=== PATIENT | female | born 1985 | race Caucasian/White ===

== ENCOUNTER 2023-09-29 20:58 | Emergency (ER) | payer MEDICARE, MEDICAID, SELFPAY ==
[2023-09-29 21:06] VITALS: BP 141/96; PULSE 100; RESP 16; TEMP 36.6; O2SAT 97; BMI 45.2
--- NOTE | 2023-09-29 21:31 | ED_ITS ---
HPI - General Adult General Chief complaint: Psychiatric Problem/Disorder Stated complaint: Suicidal ideation Time Seen by Provider: 09/29/23 21:27 History of Present Illness HPI narrative: pt feels like she wants to take all her pills. pt did not take any pills, instead called her friend. Friend brought her to the ER. Pt reports was going to take every pill she had. Pt reports 5 months ago, reason for taking all her pills is more than depression . Pt also reports increased PTSD at night time. These feelings started 2 weeks ago 38-year-old woman presenting to the emergency department. She has over the last couple of weeks been feeling increasing like she wants to take all her pills. She does believe that she and the world would be better off if she were . She cannot guarantee her safety it appears on return home at this time. She is accompanied here by her friend. Apparently told her boyfriend about her intent. She has done this before believe in 2018 and 2020 with intent to take pills ultimately admitted it to someone and was hospitalized. Last hospitalization was at [facility] with suicidal intention. Stressors recently include the of her about 5 months ago from rapidly progressive liver cancer. She has since his been relieving events that happened to her as a child she says; experiencing flares of her PTSD. References a few times however mother taught her to cut her wrist properly demonstrating to an old wound on her right wrist. She is getting out somewhat with attempts at walking her dog. Apparently has picture of her dog on her teacher at this time. Psychiatric care provider apparently increased 1 of her psychiatric meds from 4 mg to 5 mg daily. This might have been levo cetirizine. She denies any substances however about 2 weeks ago she did say she wanted to cut lose or ?let loose? little and had what sounds like more alcohol than she normally would. Related Data Home Medications Medication Instructions Recorded Confirmed bupropion HCl 300 mg 24 hr tablet, tab PO 02/24/22 02/24/22 extended release buspirone 15 mg tablet 15 mg PO BID 02/24/22 02/24/22 fluoxetine 60 mg tablet 60 mg PO BID 02/24/22 02/24/22 levocetirizine 5 mg tablet 5 mg PO QDAY 02/24/22 02/24/22 norethindrone acetate 5 mg tablet 5 mg PO QDAY 02/24/22 02/24/22 omeprazole 20 mg capsule,delayed 20 mg PO BID 02/24/22 02/24/22 release prazosin 2 mg capsule 2 mg PO QDAY 02/24/22 02/24/22 prazosin 5 mg capsule 5 mg PO BID 02/24/22 02/24/22 Allergies Allergy/AdvReac Type Severity Reaction Status Date / Time No Known Drug Allergies Allergy Verified 02/24/22 12:37 Review of Systems Status of ROS: Reports: 6 or more systems reviewed and unremarkable except as noted in History and below Exam Narrative: Exam Narrative: Accompanied by a woman friend. Appears near tears at 1 point. Is dressed in bed clothes with Madhu Potter pj bottoms and Tshirt with her dogs paw prints printed on it. She is wearing glasses. Appropriately groomed. Looks to be taking care of herself. Speech isn't pressured or slurred. She is breathing easily. Heart in elevated rate but regular rhythm. Skin is warm and dry. No evidence of new self-harm on her person. Cranial nerves 2-12 intact. No nystagmus. Const: Vital Signs, click to edit/add: Vital Signs - 24 hr 09/29/23 21:06 Temperature 97.8 F Pulse Rate [Left P ulse Oximeter] 100 Respiratory Rate 16 Blood Pressure [Ri ght Upper Arm] 141/96 H Pulse Oximetry 97 Oxygen Delivery Me thod Room Air Documenting provider has reviewed patient's vital signs: yes Course Vital Signs Vital signs: Initial Vital Signs Temperature 97.8 F 09/29/23 21:06 Temperature Source Temporal Artery Scan 09/29/23 21:06 Pulse Rate 100 09/29/23 21:06 Pulse Rhythm Regular 09/29/23 21:06 Respiratory Rate 16 09/29/23 21:06 Blood Pressure 141/96 H 09/29/23 21:06 Blood Pressure Mean 111 H 09/29/23 21:06 Blood Pressure Position Sitting 09/29/23 21:06 Pulse Oximetry 97 09/29/23 21:06 Oxygen Delivery Method Room Air 09/29/23 21:06 Vital Signs Temperature 97.8 F 09/29/23 21:06 Pulse Rate 100 09/29/23 21:06 Respiratory Rate 16 09/29/23 21:06 Blood Pressure 141/96 H 09/29/23 21:06 Pulse Oximetry 97 09/29/23 21:06 Oxygen Delivery Method Room Air 09/29/23 21:06 Temperature 97.8 F 09/29/23 21:06 Pulse Rate 100 09/29/23 21:06 Respiratory Rate 16 09/29/23 21:06 Blood Pressure 141/96 H 09/29/23 21:06 Pulse Oximetry 97 09/29/23 21:06 Oxygen Delivery Method Room Air 09/29/23 21:06 Medications Administered Medications: Discontinued Medications Generic Name Dose Route Start Last Admin Trade Name Myah PRN Reason Stop Dose Admin Olanzapine 5 mg 09/29/23 23:16 09/29/23 23:34 Olanzapine 5 Mg Tab.Rapdis PO 09/29/23 23:17 5 mg ONCE ONE Administration Medical Decision Making MDM Narrative Medical decision making narrative: This is not the 1st time that has contemplated suicide by pills. She has had other thoughts but returns to pill ingestion. Medication list is reviewed. She says that has contemplated this before but ultimately told somebody about it. Has had escalating thoughts of suicide over the last 2 weeks. Is asking for help. Does feel that she needs to be hospitalized. She has been admitted to the [facility] before. We requested to speak with psychiatric care provider there as she is requesting hospitalization. They are insisting on DEC assessment. So we will ask for DEC assessment. She is clearly stating suicidal intent though I think there are some axis 2 behaviors here. DEC provider video conferenced in surprisingly quickly insisted on speaking with patient prior to speaking with me to gather information about this case. Recommendation by DEC freight separator is observation/step-down unit with reassessment in the morning. Erica reported though to insistent on inpatient placement. Will therefore begin looking but likely have to remain here in the emergency department. I anticipate reassessment in the morning. Erica would like something to help with sleep. Is ordered for 5 mg of olanzapine. Will be handing off at change of shift Lab Data Lab results reviewed: Yes I reviewed the patient's lab results Labs: Lab Results 09/29/23 09/29/23 09/29/23 Range/Units 21:35 21:44 22:01 WBC 8.79 (4.50-11.00) K/uL RBC 5.01 (4.00-5.20) m/uL Hgb 13.5 (12.0-16.0) gm/dL Hct 40.9 (33.0-51.0) % MCV 82 (80-100) fL MCH 27 (26-34) pg MCHC 33 (32-36) gm/dL RDW Coeff of Aidan 14.1 (11.5-15.5) % Plt Count 299 (140-440) K/uL Neut % (Auto) 64.2 (42.0-72.0) % Lymph % (Auto) 28.9 (20-44) % [place] % (Auto) 4.4 (0.0-11.0) % Eos % (Auto) 1.7 (0.0-7.0) % Baso % (Auto) 0.7 (0.0-3.0) % Neut # (Auto) 5.64 (1.7-7.0) K/uL Lymph # (Auto) 2.54 (0.90-2.90) K/uL [place] # (Auto) 0.40 (0.00-0.90) K/UL Eos # (Auto) 0.15 (0.00-0.50) K/uL Baso # (Auto) 0.06 (0.00-0.30) K/uL Abs Immat Gran (auto) 0.01 (0.00-0.30) K/uL Imm/Tot Granulo (auto) 0.1 % Sodium 140 (135-149) mmol/L Potassium 3.4 L (3.6-5.1) mmol/L Chloride 107 (96-114) mmol/L Carbon Dioxide 24 (20-32) mmol/L Anion Gap 9 (7-15) mEq/L BUN 10 (5-24) mg/dL Creatinine 0.6 (0.5-1.5) mg/dL Estimated Creat Clear 117.85 Estimated GFR 117 ml/min Glucose 113 (60-115) mg/dL Calcium 9.4 (8.4-10.6) mg/dL TSH 1.500 (0.270-4.20) uIU/mL Urine Color Yellow (Yellow) Urine Appearance Slightly Cloudy A (Clear) Urine pH 7.0 (5.0-8.5) Ur Specific Ramsey 1.025 (1.000-1.030) Urine Protein Negative (Negative) Urine Glucose (UA) Negative (Negative) Urine Ketones Negative (Negative) Urine Blood Negative (Negative) Urine Nitrite Negative (Negative) Urine Bilirubin Negative (Negative) Urine Urobilinogen 1.0 (0.2-1.0) Ur Leukocyte Esterase Negative (Negative) Urine RBC 0-2 (0-2) Urine WBC 2-5 (0-5) Ur Squamous Epith Cells Moderate A (None-Few) Urine HCG, Qual Negative (Negative) Salicylates < 1.0 L (1.0-10) mg/dL Urine Opiates Screen Negative (Negative) Ur Oxycodone Screen Negative (Negative) Urine Methadone Screen Negative (Negative) Acetaminophen < 10.0 L (10.0-30.0) ug/mL Ur Barbiturates Screen Negative (Negative) U Tricyclic Antidepress Negative (Negative) Ur Phencyclidine Scrn Negative (Negative) Ur Amphetamines Screen Negative (Negative) U Methamphetamines Scrn Negative (Negative) U Benzodiazepines Scrn POSITIVE A (Negative) Urine Cocaine Screen Negative (Negative) U Marijuana (THC) Screen Negative (Negative) Ur Drug Screen Comment See Note Ethyl Alcohol < 0.01 L (0.01-0.03) % SARS-CoV-2 (PCR) (Negative) 09/29/23 Range/Units 22:10 WBC (4.50-11.00) K/uL RBC (4.00-5.20) m/uL Hgb (12.0-16.0) gm/dL Hct (33.0-51.0) % MCV (80-100) fL MCH (26-34) pg MCHC (32-36) gm/dL RDW Coeff of Aidan (11.5-15.5) % Plt Count (140-440) K/uL Neut % (Auto) (42.0-72.0) % Lymph % (Auto) (20-44) % [place] % (Auto) (0.0-11.0) % Eos % (Auto) (0.0-7.0) % Baso % (Auto) (0.0-3.0) % Neut # (Auto) (1.7-7.0) K/uL Lymph # (Auto) (0.90-2.90) K/uL [place] # (Auto) (0.00-0.90) K/UL Eos # (Auto) (0.00-0.50) K/uL Baso # (Auto) (0.00-0.30) K/uL Abs Immat Gran (auto) (0.00-0.30) K/uL Imm/Tot Granulo (auto) % Sodium (135-149) mmol/L Potassium (3.6-5.1) mmol/L Chloride (96-114) mmol/L Carbon Dioxide (20-32) mmol/L Anion Gap (7-15) mEq/L BUN (5-24) mg/dL Creatinine (0.5-1.5) mg/dL Estimated Creat Clear Estimated GFR ml/min Glucose (60-115) mg/dL Calcium (8.4-10.6) mg/dL TSH (0.270-4.20) uIU/mL Urine Color (Yellow) Urine Appearance (Clear) Urine pH (5.0-8.5) Ur Specific Ramsey (1.000-1.030) Urine Protein (Negative) Urine Glucose (UA) (Negative) Urine Ketones (Negative) Urine Blood (Negative) Urine Nitrite (Negative) Urine Bilirubin (Negative) Urine Urobilinogen (0.2-1.0) Ur Leukocyte Esterase (Negative) Urine RBC (0-2) Urine WBC (0-5) Ur Squamous Epith Cells (None-Few) Urine HCG, Qual (Negative) Salicylates (1.0-10) mg/dL Urine Opiates Screen (Negative) Ur Oxycodone Screen (Negative) Urine Methadone Screen (Negative) Acetaminophen (10.0-30.0) ug/mL Ur Barbiturates Screen (Negative) U Tricyclic Antidepress (Negative) Ur Phencyclidine Scrn (Negative) Ur Amphetamines Screen (Negative) U Methamphetamines Scrn (Negative) U Benzodiazepines Scrn (Negative) Urine Cocaine Screen (Negative) U Marijuana (THC) Screen (Negative) Ur Drug Screen Comment Ethyl Alcohol (0.01-0.03) % SARS-CoV-2 (PCR) Negative SARS-CoV-2 (Negative) Discharge Plan Discharge Clinical Impression: [place] II diagnosis deferred, Suicidal ideation Prescriptions: No Action prazosin 2 mg capsule 2 mg PO QDAY bupropion HCl 300 mg tablet extended release 24 hr PO omeprazole 20 mg capsule,delayed release(DR/EC) 20 mg PO BID norethindrone acetate 5 mg tablet 5 mg PO QDAY fluoxetine 60 mg tablet 60 mg PO BID levocetirizine 5 mg tablet 5 mg PO QDAY buspirone 15 mg tablet 15 mg PO BID prazosin 5 mg capsule 5 mg PO BID Follow Up/Referrals: Kati Smallwood MD [Primary Care Provider] -
[2023-09-29 21:45] LABS: Appearance Urine Slightly Cloudy (Clear); Bilirubin Urine Negative (Negative); Blood Urine Negative (Negative); Color Urine Yellow (Yellow); Glucose Urine Negative (Negative); Ketones Urine Negative (Negative); Leukocyte Esterase Urine Negative (Negative); Nitrite Urine Negative (Negative); Protein Urine Negative (Negative); Specific Gravity Urine 1.025 (1.000-1.030)
[2023-09-29 22:03] LABS: RBC Urine 0-2 (0-2); Squamous Epithelial Cell Urine Moderate (None-Few)
[2023-09-29 22:04] LABS: Amphetamine Screen Urine Negative (Negative); Barbiturate Screen Urine Negative (Negative); Benzodiazepines Screen Urine POSITIVE (Negative); Cannabinoid Screen Urine Negative (Negative); Cocaine Screen Urine Negative (Negative); Methadone Screen Urine Negative (Negative); Methamphetamines Screen Urine Negative (Negative); Opiate Screen Urine Negative (Negative); Oxycodone Screen Urine Negative (Negative); Phencyclidine Screen Urine Negative (Negative); Tricyclic Antidepressant Urine Negative (Negative); Ur HCG Qualitative* Negative (Negative)
[2023-09-29 22:18] LABS: Basophils Absolute Auto 0.06 K/uL (0.00-0.30); Basophils Percent Auto 0.7 % (0.0-3.0); Eosinophils Absolute Auto 0.15 K/uL (0.00-0.50); Eosinophils Percent Auto 1.7 % (0.0-7.0); Hematocrit 40.9 % (33.0-51.0); Hemoglobin* 13.5 gm/dL (12.0-16.0); Immature Granulocytes Abs Auto 0.01 K/uL (0.00-0.30); Immature Granulocytes Pct Auto 0.1 %; Lymphocytes Absolute Auto 2.54 K/uL (0.90-2.90); Lymphocytes Percent Auto 28.9 % (20-44); Mean Corpuscular HGB Conc 33 gm/dL (32-36); Mean Corpuscular Hemoglobin 27 pg (26-34); Mean Corpuscular Volume 82 fL (80-100); Monocytes Percent Auto 4.4 % (0.0-11.0); Neutrophils Absolute Auto 5.64 K/uL (1.7-7.0); Neutrophils Percent Auto 64.2 % (42.0-72.0); Platelet Count* 299 K/uL (140-440); RDW Coefficient of Variation % 14.1 % (11.5-15.5); Red Blood Count 5.01 m/uL (4.00-5.20); White Blood Count* 8.79 K/uL (4.50-11.00)
[2023-09-29 22:23] LABS: Slide Review Reflex No
[2023-09-29 22:31] LABS: Chloride* 107 mmol/L (96-114); Potassium* 3.4 mmol/L (3.6-5.1); Sodium* 140 mmol/L (135-149)
[2023-09-29 22:34] LABS: Anion Gap 9 mEq/L (7-15); Blood Urea Nitrogen* 10 mg/dL (5-24); Calcium* 9.4 mg/dL (8.4-10.6); Carbon Dioxide* 24 mmol/L (20-32); Creatinine* 0.6 mg/dL (0.5-1.5); Est. Creatinine Clearance* 117.85; Estimated Glomerular Filt Rate 117 ml/min; Glucose* 113 mg/dL (60-115)
[2023-09-29 22:37] LABS: Acetaminophen* < 10.0 ug/mL (10.0-30.0); Ethanol* < 0.01 % (0.01-0.03); Salicylate* < 1.0 mg/dL (1.0-10)
[2023-09-29 22:55] LABS: SARS PCR* Negative SARS-CoV-2 (Negative)
--- NOTE | 2023-09-29 23:00 | ED.NURSE ---
DEC completed. Pt changed from room 7 to room 2 not that room 2 is available. Pt is cooperative.
[2023-09-29] MEDS: OLANZapine 5 MG TAB.RAPDIS PO (23:34)
--- NOTE | 2023-09-29 23:34 | ED.NURSE ---
Pt given apple juice and apple sauce per request.
--- NOTE | 2023-09-30 02:26 | ED.NURSE ---
[facility] accepted pt. RN to RN report given. RN at [facility]. Number [phone]. Dispatch also called.
[2023-09-30 02:30] VITALS: BP 137/86; PULSE 79; RESP 16; O2SAT 96
--- NOTE | 2023-09-30 02:41 | ED.NURSE ---
EMS arrived. Report given to EMS. [facility] called and gave ETA of EMS.
== END 2023-09-30 02:49 | disposition short-term general hospital (02) ==
LOC: ED 21:52
PROVIDERS: Emergency Provider Family Medicine; PCP Family Medicine
DX: R45.851 Suicidal ideations (principal)
CPT/HCPCS: 36415; 80048; 80143; 80179; 80306; 81001; 81025; 82077; 84443; 85025; 87635; 99283; 99284; A9270

== ENCOUNTER 2023-09-30 02:32 | Outpatient (CLI) | payer MEDICARE, MEDICAID, SELFPAY | END 2023-09-30 02:33 | disposition home or self-care (01) | LOC: AMB 10-01 12:41 | PROVIDERS: PCP Family Medicine; Visit Provider Family Medicine | DX: R45.851 Suicidal ideations (principal) | CPT/HCPCS: A0425; A0428 ==

== ENCOUNTER 2024-09-04 04:37 | Emergency (ER) | payer MEDICARE, SELFPAY ==
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
[2024-09-04 04:42] VITALS: BP 137/88; PULSE 95; RESP 18; TEMP 36.9; O2SAT 99; BMI 46.8
--- NOTE | 2024-09-04 05:20 | ED_ITS ---
HPI - General Adult General Chief complaint: Rib Pain Stated complaint: Pain below R ribs, short of breath Time Seen by Provider: 09/04/24 05:20 History of Present Illness HPI narrative: CC: Right Rib Pain pt. with right rib pain since yesterday morning. denies n/v, fevers, cough. 39-year-old woman presenting to the emergency department with concern of right lower chest or upper abdominal pain that started yesterday. No fever. No rash. No cough or cold symptoms. In no trauma. No noted unusual leg pain or swelling. [id number] treatments including ibuprofen acetaminophen have not been helpful. Pain is reported is definitely pleuritic. No particular stomach indigestion but does take omeprazole. There was a question of constipation and so was supplemented with some bowel aid but she says that has actually been quite regular as of late prior to that. Here with service dog Related Data Home Medications ?Medication ?Instructions ?Recorded ?Confirmed bupropion HCl 300 mg 24 hr tablet, 300 mg PO DAILY 02/24/22 09/04/24 extended release buspirone 15 mg tablet 15 mg PO BID 02/24/22 09/04/24 fluoxetine 60 mg tablet 60 mg PO BID 02/24/22 09/04/24 levocetirizine 5 mg tablet 5 mg PO QDAY 02/24/22 09/04/24 omeprazole 20 mg capsule,delayed 20 mg PO BID 02/24/22 09/04/24 release prazosin 2 mg capsule 2 mg PO QDAY 02/24/22 09/04/24 Previous Rx's ?Medication ?Instructions ?Recorded hydrocodone 5 mg-acetaminophen 325 1 - 2 tab PO Q4-6H PRN pain #12 09/04/24 mg tablet tabs ibuprofen 600 mg tablet 600 mg PO Q8H PRN #30 tabs 09/04/24 Allergies Allergy/AdvReac Type Severity Reaction Status Date / Time No Known Drug Allergies Allergy Verified 09/04/24 04:44 Review of Systems Status of ROS: Reports: 6 or more systems reviewed and unremarkable except as noted in History and below [facility] Social History Smoking Status: Never smoker Second hand tobacco smoke exposure: No How often do you have a drink containing alcohol: never AUDIT-C Alcohol total score: 0 Non-prescribed substance use: denies use Exam Narrative: Exam Narrative: Lying in exam chair. Appears uncomfortable. Splinting a little bit her breathing. Lungs appear to be clear. Heart in elevated rate and regular rhythm. Abdomen is soft. Obese. Very sensitive with severe pain demonstrated to even light touch in the right upper abdomen and along the ribs. Less so to the harder palpation of the ribs themselves in this area. No pain to palpation of the back but starts to get sore in the right ribs of the flanks. Skin is warm and dry without rash. Extremities without notable edema. She is well- perfused. Const: Vital Signs, click to edit/add: Vital Signs - 24 hr 09/04/24 04:42 09/04/24 05:36 09/04/24 06:41 Temperature 98.5 F 98.5 F Pulse Rate [Right Pulse Oximeter] 95 Respiratory Rate 18 Blood Pressure [Ri ght Upper Arm] 137/88 Pulse Oximetry 99 99 Oxygen Delivery Me thod Room Air 09/04/24 06:43 Temperature 98.5 F Pulse Rate [Right Pulse Oximeter] 85 Respiratory Rate 18 Blood Pressure [Ri ght Upper Arm] 129/79 Pulse Oximetry 99 Oxygen Delivery Me thod Room Air Documenting provider has reviewed patient's vital signs: yes Course Vital Signs Vital signs: Initial Vital Signs Temperature 98.5 F 09/04/24 04:42 Temperature Source Temporal Artery Scan 09/04/24 04:42 Pulse Rate 95 09/04/24 04:42 Respiratory Rate 18 09/04/24 04:42 Blood Pressure 137/88 09/04/24 04:42 Blood Pressure Mean 104 09/04/24 04:42 Blood Pressure Position Sitting 09/04/24 04:42 Pulse Oximetry 99 09/04/24 04:42 Oxygen Delivery Method Room Air 09/04/24 04:42 Vital Signs Temperature 98.5 F 09/04/24 04:42 Pulse Rate 95 09/04/24 04:42 Respiratory Rate 18 09/04/24 04:42 Blood Pressure 137/88 09/04/24 04:42 Pulse Oximetry 99 09/04/24 04:42 Oxygen Delivery Method Room Air 09/04/24 04:42 Temperature 98.5 F 09/04/24 06:43 Pulse Rate 88 09/04/24 08:35 Respiratory Rate 20 09/04/24 08:35 Blood Pressure 146/93 H 09/04/24 08:35 Pulse Oximetry 96 09/04/24 08:35 Oxygen Delivery Method Room Air 09/04/24 08:35 Medications Administered Medications: Discontinued Medications Generic Name Dose Route Start Last Admin Trade Name Myah PRN Reason Stop Dose Admin Sodium Chloride 500 mls @ 1,000 mls/hr 09/04/24 05:25 09/04/24 06:01 0.9 % Sodium Chloride 500 Ml IV 09/04/24 05:54 Infused .Q30M ONE Infusion Sodium Chloride 500 mls @ 1,000 mls/hr 09/04/24 06:48 09/04/24 07:35 0.9 % Sodium Chloride 500 Ml IV 09/04/24 07:17 Infused .Q30M ONE Infusion Ketorolac Tromethamine 30 mg 09/04/24 05:25 09/04/24 05:31 Ketorolac 30 Mg/Ml Inj IVP 09/04/24 05:26 30 mg ONCE ONE Administration Lidocaine 1 patch 09/04/24 06:38 09/04/24 06:48 Lidocaine 5% Patch TRANSDERMA 09/04/24 06:39 1 patch ONCE ONE Administration Protocol Morphine Sulfate 4 mg 09/04/24 05:25 09/04/24 05:30 Morphine 4 Mg/Ml Inj IVP 09/04/24 05:26 4 mg ONCE ONE Administration Medical Decision Making MDM Narrative Medical decision making narrative: She does still have her gallbladder. May be having cholecystitis sustained. Could be chest wall/costochondritic pain. Doubtful urinary tract infection or ureteral stone/colic. Could be rib to injury. Evolving shingles? Low-lying pneumonia or pulmonary embolus? I do not think this is radicular back pain. Possible occult fracture I suppose. Will need to collect some labs to direct imaging if necessary. She would appreciate some pain relief. Ordered initially for morphine and ketorolac. Labs are wholly unremarkable. I understand that pain is not improved at all. Ago to reassess. Is still quite tender to light touch and specially palpation of the low right side rib margin even little more laterally. Also tender in the right upper quadrant but not I think like the ribs on re exam. Is uncomfortable and concerned. Demonstrating degree of pleuritic pain is now experiencing. Will do CTA chest to make sure not missing anything there. Doubt pulmonary embolus. I think this is costochondritis/rib tip injury. As expected imaging is unremarkable. 3 mm nodule is noted. No high risk history per subsequent discussion. INDICATION: Severe atraumatic pleuritic right anterior lower chest pain, rib edge ? COMPARISON: None. TECHNIQUE: CT angiogram chest with contrast, pulmonary embolism protocol. Multiplanar axial, coronal, and sagittal reformats are included. MIP images to improve detection of pulmonary emboli are included. Intravenous contrast: 95 mL Isovue 370. FINDINGS: PE: Well-timed contrast bolus. No pulmonary emboli. Normal caliber main pulmonary artery. Normal sized right heart chambers. No reflux of contrast below the diaphragm. Airway: Normal tracheobronchial tree. Lungs: Expiratory appearance of the lungs. There is a 3 millimeter pulmonary nodule in the subpleural left lower lobe on series 4, image 103. calcified granuloma in the right lower lobe. No consolidations. Normal appearance of the pulmonary interstitium. Pleura: No pleural effusion. No pneumothorax. Lymph nodes: No thoracic adenopathy. Mediastinum: No pneumomediastinum. Small residual thymus is within normal limits. Heart and great vessels: No pericardial effusion. Normal cardiac chamber size. Scattered atherosclerotic plaques. No aortic aneurysm. Chest wall: Normal. No masses. Upper abdomen: Normal. Bones: No fractures. No focal bone lesions. IMPRESSION: 1. No pulmonary embolism. 2. Expiratory appearance of the lungs. 3. There is a single 3 millimeter pulmonary nodule. Per the Fleischner society criteria, follow-up is only recommended for patients that have a high risk of primary pulmonary malignancy, with a follow-up chest CT in 1 year. Otherwise, no specific follow-up is recommended. Vitals stable. Pain persists but otherwise well in the emergency department. Discussed outpatient management of pain. See patient discharge plan for further discussion If this lidocaine patch seems to be helpful, can purchase more [id number]. Consider placing ice packs a couple of times daily over the next few days. Would recommend taking 600 mg of ibuprofen 3 times daily or alternatively 375 mg naproxen 2 times daily over the next 5-7 days. You might want to take this scheduled medication with a little food. Can combine either of these with up to 1000 mg of acetaminophen per dose. Also prescribing some [place] as discussed. This is an opiate. Remember that each tablet of [place] contains 325 mg of acetaminophen. Be seen for increasing and persistent shortness of breath, uncontrolled pain, associated fever. Medical Records Medical records reviewed: Yes I reviewed the patient's medical records Lab Data Lab results reviewed: Yes I reviewed the patient's lab results Labs: Lab Results 09/04/24 09/04/24 09/04/24 Range/Units 05:25 05:35 06:18 WBC 8.74 (4.50-11.00) K/uL RBC 5.08 (4.00-5.20) m/uL Hgb 13.5 (12.0-16.0) gm/dL Hct 42.0 (33.0-51.0) % MCV 83 (80-100) fL MCH 27 (26-34) pg MCHC 32 (32-36) gm/dL RDW Coeff of [place] 14.0 (11.5-15.5) % Plt Count 290 (140-440) K/uL Neut % (Auto) 63.1 (42.0-72.0) % Lymph % (Auto) 29.6 (20-44) % [place] % (Auto) 5.0 (0.0-11.0) % Eos % (Auto) 1.5 (0.0-7.0) % Baso % (Auto) 0.7 (0.0-3.0) % Neut # (Auto) 5.51 (1.7-7.0) K/uL Lymph # (Auto) 2.59 (0.90-2.90) K/uL [place] # (Auto) 0.40 (0.00-0.90) K/UL Eos # (Auto) 0.13 (0.00-0.50) K/uL Baso # (Auto) 0.06 (0.00-0.30) K/uL Abs Immat Gran (auto) 0.01 (0.00-0.30) K/uL Imm/Tot Granulo (auto) 0.1 % D-Dimer Quant (PE/DVT) 0.37 (0.00-0.50) ug/ml Sodium 140 (135-149) mmol/L Potassium 4.3 (3.6-5.1) mmol/L Chloride 105 (96-114) mmol/L Carbon Dioxide 25 (20-32) mmol/L Anion Gap 10 (7-15) mEq/L BUN 14 (5-24) mg/dL Creatinine 0.6 (0.5-1.5) mg/dL Estimated Creat Clear 116.68 Estimated GFR 116 ml/min Glucose 120 H (60-115) mg/dL Calcium 9.3 (8.4-10.6) mg/dL Total Bilirubin 0.5 (0.1-1.5) mg/dL Direct Bilirubin 0.4 (0.0-0.5) mg/dL AST 31 (12-35) U/L ALT 31 (4-35) U/L Alkaline Phosphatase 51 (40-150) U/L C-Reactive Protein 1.1 H (0.5-1.0) mg/dL Total Protein 7.6 (6.0-8.3) g/dL Albumin 4.2 (3.3-5.0) g/dL Lipase 74 (23-300) U/L Urine Color Yellow (Yellow) Urine Appearance Slightly Cloudy A (Clear) Urine pH 5.5 (5.0-8.5) Ur Specific [address] >= 1.030 (1.000-1.030) Urine Protein Negative (Negative) Urine Glucose (UA) Negative (Negative) Urine Ketones Trace A (Negative) Urine Blood Negative (Negative) Urine Nitrite Negative (Negative) Urine Bilirubin 1+ A (Negative) Urine Urobilinogen 1.0 (0.2-1.0) Ur Leukocyte Esterase Negative (Negative) Urine RBC 0-2 (0-2) Urine WBC 0-2 (0-5) Ur Squamous Epith Cells Moderate A (None-Few) Urine Bacteria Few A (None) Discharge Plan Discharge Clinical Impression: Costochondritis, Chest wall pain Patient Disposition: Home w/ Parent or Adult Condition: Stable Additional Instructions: If this lidocaine patch seems to be helpful, can purchase more [id number]. Consider placing ice packs a couple of times daily over the next few days. Would recommend taking 600 mg of ibuprofen 3 times daily or alternatively 375 mg naproxen 2 times daily over the next 5-7 days. You might want to take this scheduled medication with a little food. Can combine either of these with up to 1000 mg of acetaminophen per dose. Also prescribing some [place] as discussed. This is an opiate. Remember that each tablet of [place] contains 325 mg of acetaminophen. Be seen for increasing and persistent shortness of breath, uncontrolled pain, associated fever. Prescriptions: New hydrocodone-acetaminophen 5-325 mg tablet 1 - 2 tab PO Q4-6H PRN (Reason: pain) Qty: 12 0RF ibuprofen 600 mg tablet 600 mg PO Q8H PRNQty: 30 0RF No Action prazosin 2 mg capsule 2 mg PO QDAY bupropion HCl 300 mg tablet extended release 24 hr 300 mg PO DAILY omeprazole 20 mg capsule,delayed release(DR/EC) 20 mg PO BID fluoxetine 60 mg tablet 60 mg PO BID levocetirizine 5 mg tablet 5 mg PO QDAY buspirone 15 mg tablet 15 mg PO BID Follow Up/Referrals: Kati Smallwood MD [Primary Care Provider] - Stand Alone Forms: [facility] Info Instructions
[2024-09-04] MEDS: MORPHINE 4 MG/ML INJ IVP (05:30)
[2024-09-04] MEDS: 0.9 % SODIUM CHLORIDE 500 ML 500 ML 1000 ML IV ×2 (05:31→06:59)
[2024-09-04] MEDS: KETOROLAC 30 MG/ML inj IVP (05:31)
[2024-09-04 05:36] VITALS: O2SAT 99
[2024-09-04 05:43] LABS: Basophils Absolute Auto 0.06 K/uL (0.00-0.30); Basophils Percent Auto 0.7 % (0.0-3.0); Eosinophils Absolute Auto 0.13 K/uL (0.00-0.50); Eosinophils Percent Auto 1.5 % (0.0-7.0); Hemoglobin* 13.5 gm/dL (12.0-16.0); Immature Granulocytes Abs Auto 0.01 K/uL (0.00-0.30); Immature Granulocytes Pct Auto 0.1 %; Lymphocytes Absolute Auto 2.59 K/uL (0.90-2.90); Lymphocytes Percent Auto 29.6 % (20-44); Mean Corpuscular HGB Conc 32 gm/dL (32-36); Mean Corpuscular Hemoglobin 27 pg (26-34); Mean Corpuscular Volume 83 fL (80-100); Neutrophils Absolute Auto 5.51 K/uL (1.7-7.0); Neutrophils Percent Auto 63.1 % (42.0-72.0); Platelet Count* 290 K/uL (140-440); Red Blood Count 5.08 m/uL (4.00-5.20); White Blood Count* 8.74 K/uL (4.50-11.00)
[2024-09-04 05:49] LABS: Slide Review Reflex No
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
--- OUTSIDE RECORDS SUMMARY | 2024-09-04 05:51 | XMS_ITS | Clinical Summary ---
Author Organization [facility] Address [address] [place] [address] Care Team Providers Care Risk Control Manager Name Role Phone Elsewhere, Pcp Primary Care Provider Unavailabl e Source Comments Patient records contain information from all sites at [facility]. For routine questions regarding patient records, call [phone] during business hours, M-F 8:00 AM - 5:00 PM Central Time. Record requests for emergency care only can be directed to [phone] at any time.[facility] Allergies Active Allergy Reactions Criticality Noted Date [...] (04/25/2021): Added automatically from request for surgery [id number] Suicide Ideation 10/26/2020 Apnea Sleep Obstructive 04/07/2019 [...] e alcohol) Once a month or less [facility] Utilities Answer Date Recorded In the past 12 months has [employer], gas, oil, or water [employer] threatened to shut off services in your [...] How often do you attend chur or holiness services? More than 4 times per year 11/09/2021 Do you belong to any clubs o r organizations such as gnosticism groups, unions, fraternal or athletic groups, or [...] Answer Date Recorded PHQ-2 Score 1 01/28/2022 [facility] - Occupational Stress Questionnaire Answer Date Recorded [...] PM CDT Legal Sex Female 10:37 AM EVENT SET UP SPECIALIST Gender Identity Female 04/24/2021 4:38 PM CDT [...] this topic Medical Devices Implanted Type Area Robotics Engineer Device Identifier Shelf Expiration Date Model / Serial / Lot Mirena Iud Implanted:Qt y: 1 on 06/17/2021 by Vilma Johnson M.D., M.P.H. at [facility] Intrauterine Device N/A: Uterus Graeme [id number] 09/16/2023 [id number] 09-17 [id number] / [id number] Procedures Procedure Name Priority Date/Time Associated Diagnosis Comments HPV WITH GENOTYPING, PCR, THINPREP Routine 04/01/2023 2:24 PM CDT LIPID PANEL, S Routine 10/27/2020 4:25 AM CDT from Last 3 Months or Most Recently Relevant to Health Maintenance Results * HPV with Genotyping, PCR, ThinPrep (04/01/2023 2:24 PM CDT) Specimen Source Cervix/Endoc ervix 04/03/2023 4:21 PM CDT [facility] HPV High Risk type 16, PCR Negative Negative 04/03/2023 4:21 PM CDT [facility] HPV High Risk type 18, PCR Negative Negative 04/03/2023 4:21 PM CDT [facility] HPV other High Risk types, PCR Negative Negative 04/03/2023 4:21 PM CDT [facility] Comment: The following Other High Risk HPV types were not detected: 31, 33, 35, 39, 45, 51, 52, 56, 58, 59, 66, and 68 This test was ordered in the context of a [facility] GIRLS SWIMMING COACH Cytology case; this result should be interpreted within the context of the GIRLS SWIMMING COACH cytology report. ----ADDITIONAL INFORMATION---- Testing was performed using the enrrique HPV assay ([employer] This report is intended for use in clinical monitoring and management of patients. It is not intended for use in medical-legal applications. 04/01/2023 2:24 PM CDT 04/01/2023 3:16 PM CDT us [place] M.D. LAB MICROBIOLOGY - GENER AL ORDERABLES Final Result Performing Organization Address City/[facility]/ZIP Co de Phone Number [facility] [address] [place] [address] [facility] [address] [place] [address] [place] [address] * (ABNORMAL) Lipid Panel (10/27/2020 4:25 AM CDT) [facility] Cholesterol, Total 207(H) mg/dL 2020 5:23 AM [...] M.D. LAB BLOOD ADD-ON Final Resul t [facility] [place] [facility] [address] [place] [address], [place] [facility] [place] [facility] [place] [facility] [place] [address] [place] [address] from Last 3 Months or Most Recently Relevant to Health Maintenance Insurance MEDICARE [facility] Advance Directives For more information, please contact: [phone] * Full Code (Latest Code Status on [...] Answer Comments Full Code: Discussed Care Teams Risk Control Manager Relationship Specialty Start Date End Date Elsewhere, Pcp PCP - General Family Medicine 06/17/21
[2024-09-04 06:02] LABS: Albumin* 4.2 g/dL (3.3-5.0); Chloride* 105 mmol/L (96-114); Sodium* 140 mmol/L (135-149)
[2024-09-04 06:03] LABS: Potassium* 4.3 mmol/L (3.6-5.1)
[2024-09-04 06:05] LABS: Alkaline Phosphatase* 51 U/L (40-150); Anion Gap 10 mEq/L (7-15); Aspartate Amino Transferase* 31 U/L (12-35); Bilirubin Direct* 0.4 mg/dL (0.0-0.5); Bilirubin Total* 0.5 mg/dL (0.1-1.5); Blood Urea Nitrogen* 14 mg/dL (5-24); Carbon Dioxide* 25 mmol/L (20-32); Creatinine* 0.6 mg/dL (0.5-1.5); Est. Creatinine Clearance* 116.68; Estimated Glomerular Filt Rate 116 ml/min; Glucose* 120 mg/dL (60-115); Total Protein* 7.6 g/dL (6.0-8.3)
[2024-09-04 06:06] LABS: Alanine Aminotransferase* 31 U/L (4-35); Calcium* 9.3 mg/dL (8.4-10.6); Lipase* 74 U/L (23-300)
[2024-09-04 06:07] LABS: D Dimer Quantitative* 0.37 ug/ml (0.00-0.50)
[2024-09-04 06:08] LABS: C Reactive Protein* 1.1 mg/dL (0.5-1.0)
[2024-09-04 06:36] LABS: Appearance Urine Slightly Cloudy (Clear); Bilirubin Urine 1+ (Negative); Blood Urine Negative (Negative); Color Urine Yellow (Yellow); Glucose Urine Negative (Negative); Ketones Urine Trace (Negative); Leukocyte Esterase Urine Negative (Negative); Nitrite Urine Negative (Negative); Protein Urine Negative (Negative); Specific Gravity Urine >= 1.030 (1.000-1.030); pH Urine 5.5 (5.0-8.5)
[2024-09-04 06:41] VITALS: TEMP 36.9
[2024-09-04 06:43] VITALS: BP 129/79; PULSE 85; RESP 18; TEMP 36.9; O2SAT 99
[2024-09-04] MEDS: LIDOCAINE 5% PATCH 1 PATCH TRANSDERMA (06:48)
[2024-09-04 06:53] LABS: RBC Urine 0-2 (0-2); WBC Urine 0-2 (0-5)
[2024-09-04 06:54] LABS: Bacteria Urine Few; Squamous Epithelial Cell Urine Moderate (None-Few)
[2024-09-04 08:35] VITALS: BP 146/93; PULSE 88; RESP 20; O2SAT 96
== END 2024-09-04 08:36 | disposition home or self-care (01) ==
PROVIDERS: Emergency Provider Family Medicine; PCP Family Medicine
DX: M94.0 Chondrocostal junction syndrome [Tietze] (principal); R07.89 Other chest pain
CPT/HCPCS: 36415; 71275; 80048; 80076; 81001; 83690; 85025; 85379; 86140; 87086; 94761; 96361; 96374; 96375; 99284; 99285; A9270; J1885; J2270; J7030; Q9967

== ENCOUNTER 2024-12-20 13:40 | Outpatient (CLI) | payer MEDICARE, SELFPAY | END 2024-12-20 13:41 | disposition home or self-care (01) | LOC: AMB 12-22 11:03 | PROVIDERS: PCP Family Medicine; Visit Provider Family Medicine | DX: M54.9 Dorsalgia, unspecified (principal) | CPT/HCPCS: A0425; A0427 ==

== ENCOUNTER 2024-12-20 13:58 | Emergency (ER) | payer MEDICARE, SELFPAY ==
[2024-12-20] VITALS (15 sets, daily range): BP systolic 116–146; BP diastolic 71–96; PULSE 90–110; RESP 14–22; TEMP 37.1; O2SAT 92–96; BMI 46.8
--- OUTSIDE RECORDS SUMMARY | 2024-12-20 03:49 | XMS_ITS | Continuity of Care Document ---
Author Organization [facility] Address [address] [place] [address] Phone Care Team Providers Care Manager Statistics Name Role Phone RN, RN Unavailable Unavailable Advance Directives Directive Yes / No Effective Date File Name Other Directive No N/A N/A WARNING:The information contained in this section is historical and is provided for information only and does not constitute a legal document or any assurance that the information is still accurate. Please verify the information with the yo of the legal document before using it for clinical purposes. Encounters Encounter Description Practice Location Reason(s) For Visit Diagnoses Date Provider Providers Copied on Encounter [facility], [address] [address], [place], [place], [id number], [place] tel:[phone] [facility] No Information RN RN. [address], [address], [place], [id number], [place]. tel:[phone] Family History Family Member Type Diagnosis Age At Onset No Information Payers Payer name Insurance type Covered republican ID Authoriza tion(s) No Information Social History Type Description Quantity Date Captured Comments Alcohol Use Details Unknown Caffeine Use Details Unknown Tobacco Use Status No Information Smoking Status No Information Sex Female Chief Complaint And Reason For Visit No Information Reason For Referral Reason For Referral No Information History Of Present Illness Encounter Date Complaint History Of Prese nt Illness No Information Functional Status Date Functional Assessmen t No Information Instructions Date Instruction Additional Infor mation No Information Assessments Type Assessment Date No Information Patient Care Teams Name Effective Dates (start - stop) Status Members No Information
--- OUTSIDE RECORDS SUMMARY | 2024-12-20 03:49 | XMS_ITS | Continuity of Care Document ---
Author Organization [facility] Address [address] [place] [address] Phone Care Team Providers Care Manager Multimedia Name Role Phone RN, RN Unavailable Unavailable [...] Providers Copied on Encounter [facility], [address] [facility] [address], [place], [place], [id number], [place] tel:[phone] [facility] No Information RN RN. [address], [address], [place], [address], [place]. tel:[phone] Family History Family Member Type Diagnosis Age At Onset No Information Payers Payer name Insurance type Covered democrat ID Authoriza tion(s) No Information Social History [...]
--- OUTSIDE RECORDS SUMMARY | 2024-12-20 14:00 | XMS_ITS | Clinical Summary ---
Author Organization [facility] Address [address] [place] [address] Care Team Providers Care Hot Mill Tin Roller Name Role Phone Elsewhere, Pcp Primary Care Provider Unavailabl e Source Comments Patient records contain information from all sites at [facility]. For routine questions regarding patient records, call [phone] during business hours, M-F 8:00 AM - 5:00 PM Central Time. Record requests for emergency care only can be directed to [phone] at any time.[facility] Allergies Active Allergy Reactions Criticality Noted Date [...] (04/25/2021): Added automatically from request for surgery [id number] Suicide Ideation 10/26/2020 Apnea Sleep Obstructive 04/07/2019 [...] e alcohol) Once a month or less [facility] Utilities Answer Date Recorded In the past 12 months has [employer], gas, oil, or water [employer] threatened to shut off services in your [...] How often do you attend chur or adventist services? More than 4 times per year 11/09/2021 Do you belong to any clubs o r organizations such as religion groups, unions, fraternal or athletic groups, or [...] Answer Date Recorded PHQ-2 Score 1 01/28/2022 [facility] [place] - Occupational Stress Questionnaire Answer Date Recorded [...] PM CDT Legal Sex Female 10:37 AM COMMERCIAL INTERNSHIP Gender Identity Female 04/24/2021 4:38 PM CDT [...] this topic Medical Devices Implanted Type Area Mechanical Manufacturing Engineer Device Identifier Shelf Expiration Date Model / Serial / Lot Mirena Iud Implanted:Qt y: 1 on 06/17/2021 by Vilma Johnson M.D., M.P.H. at [facility] Intrauterine Device N/A: Uterus Graeme [id number] 09/16/2023 69979-39 09-17 [id number] / [id number] Procedures Procedure Name Priority Date/Time Associated Diagnosis Comments HPV WITH GENOTYPING, PCR, THINPREP Routine 04/01/2023 2:24 PM CDT LIPID PANEL, S Routine 10/27/2020 4:25 AM CDT from Last 3 Months or Most Recently Relevant to Health Maintenance Results * HPV with Genotyping, PCR, ThinPrep (04/01/2023 2:24 PM CDT) Specimen Source Cervix/Endoc ervix 04/03/2023 4:21 PM CDT [facility] HPV High Risk type 16, PCR Negative Negative 04/03/2023 4:21 PM CDT [facility] HPV High Risk type 18, PCR Negative Negative 04/03/2023 4:21 PM CDT [facility] HPV other High Risk types, PCR Negative Negative 04/03/2023 4:21 PM CDT [facility] Comment: The following Other High Risk HPV types were not detected: 31, 33, 35, 39, 45, 51, 52, 56, 58, 59, 66, and 68 This test was ordered in the context of a [facility] COMMUNITY HEALTH COORDINATOR Cytology case; this result should be interpreted within the context of the COMMUNITY HEALTH COORDINATOR cytology report. ----ADDITIONAL INFORMATION---- Testing was performed using the enrrique HPV assay ([employer] This report is intended for use in clinical monitoring and management of patients. It is not intended for use in medical-legal applications. 04/01/2023 2:24 PM CDT 04/01/2023 3:16 PM CDT us [place] M.D. LAB MICROBIOLOGY - GENER AL ORDERABLES Final Result Performing Organization Address City/[facility]/ZIP Co de Phone Number [facility] [address] [place] [address] [facility] [address] [place] [address] [place] [address] * (ABNORMAL) Lipid Panel (10/27/2020 4:25 AM CDT) [facility] Cholesterol, Total 207(H) mg/dL 2020 5:23 [...] M.D. LAB BLOOD ADD-ON Final Resul t [facility] [address] [place] [address], [place] [facility] [place] [place] [facility] [place] [address] [place] [address] from Last 3 Months or Most Recently Relevant to Health Maintenance Insurance MEDICARE [facility] Advance Directives For more information, please contact: [phone] * Full Code (Latest Code Status on [...] Answer Comments Full Code: Discussed Care Teams Hot Mill Tin Roller Relationship Specialty Start Date End Date Elsewhere, Pcp PCP - General Family Medicine 06/17/21
--- OUTSIDE RECORDS SUMMARY | 2024-12-20 14:00 | XMS_ITS | Clinical Summary ---
Author Organization [facility] Address [address] [place] [address] Care Team Providers Care Director Of Knowledge Management Name Role Phone Selin, Kati Maire MD Primary Care Provider MaleCris covington NP Unavailable [phone] Allergies Active Allergy Reactions Criticality Noted Date Comments Gabapentin Agitation 11/03/2024 Suicidality Lactose Stomach Upset 05/12/2019 Pollen Extracts Headache Low 02/09/2018 [employer] Pollen Other - Describe I n Comment Field 06/15/2020 Seasonal allergies runny nose, watery eyes Unlisted Allergen (Include Detail In Comments) Headache,Runny Nose Low 02/09/2018 Medications levocetirizine (XYZAL) 5 mg tab tabletIndication s:Seasonal allergic rhinitis due to pollen Take 1 Tablet (5 mg) by mouth once daily in the evening. 90 Tablet 3 4 Active omeprazole (PRILOSEC) 20 mg Delayed-Release capsuleIndicatio ns:Gastroesophag eal reflux disease, unspecified whether esophagitis present Take 1 Capsule (20 mg) by mouth two times daily before meals. 180 Capsule 2 5 Active hydrOXYzine HCL 25 mg tabletIndication s:PTSD (post-traumatic stress disorder),Insomn ia, unspecified type Take 2-3 tablets by mouth at bedtime for sleep as needed, can take 1 tablet by mouth once daily as needed for anxiey 75 Tablet 1 5 Active Shower ChairIndications :Weakness For home use- ongoing for 52 weeks 1 Each 5 Active busPIRone 15 mg tabletIndication s:PTSD (post-traumatic stress disorder),Border line personality disorder (HC),Severe episode of recurrent major depressive disorder, without psychotic features (HC) Take 1 Tablet (15 mg) by mouth two times daily. 60 Tablet 5 5 Active prazosin 1 mg capsuleIndicatio ns:PTSD (post-traumatic stress disorder),Nightm joe associated with chronic post-traumatic stress disorder Take 2 Capsules (2 mg) by mouth at bedtime. 60 Capsule 5 5 Active buPROPion 300 mg Extended-Release tabletIndication s:PTSD (post-traumatic stress disorder),Border line personality disorder (HC),Severe episode of recurrent major depressive disorder, without psychotic features (HC) Take 1 Tablet (300 mg) by mouth once daily in the morning. 90 Tablet 5 5 Active DULoxetine 30 mg Delayed-release capsuleIndicatio ns:PTSD (post-traumatic stress disorder),Severe episode of recurrent major depressive disorder, without psychotic features (HC) Take 1 Capsule (30 mg) by mouth once daily. For one week. Then increase to 60mg (2 capsules) by mouth once daily 60 Capsule 1 5 Active buPROPion (WELLBUTRIN XL) 300 mg Extended-Release tabletIndication s:PTSD (post-traumatic stress disorder),MDD (major depressive disorder), recurrent episode, mild,Borderline personality disorder (HC) Take 1 Tablet (300 mg) by mouth once daily in the morning. 90 Tablet 1 5 11/23/19 25 Discontinu ed(Reorder (E-cancel not sent)) busPIRone (BUSPAR) 15 mg tabletIndication s:PTSD (post-traumatic stress disorder),Border line personality disorder (HC),Severe episode of recurrent major depressive disorder, without psychotic features (HC) Take 1 Tablet (15 mg) by mouth two times daily. 60 Tablet 1 5 11/23/19 25 Discontinu ed(Reorder (E-cancel not sent)) FLUoxetine 20 mg capsuleIndicatio ns:PTSD (post-traumatic stress disorder),Border line personality disorder (HC),Severe episode of recurrent major depressive disorder, without psychotic features (HC) Take 2 Capsules (40 mg) by mouth once daily. 60 Capsule 1 5 11/23/19 25 Discontinu ed(*Med complete/R egimen complete/L evel of care change) prazosin 1 mg capsuleIndicatio ns:PTSD (post-traumatic stress disorder),Nightm joe associated with chronic post-traumatic stress disorder Take 2 Capsules (2 mg) by mouth at bedtime. 60 Capsule 1 5 11/23/19 25 Discontinu ed(Reorder (E-cancel not sent)) Active Problems Problem Noted Date Diagnosed Date Prediabetes 11/06/2024 Abnormal uterine bleeding (AUB) 04/21/2024 Depression, recurrent [...] Encounters Date Type Department Care Team Description 12/13/2024 Medical Messaging [facility] [address] [place] [address] Kati Smallwood MD Referral 11/28/2024 Telephone [facility] [address] [place] [address] Pattie Nieves Referral 11/25/2024 Telephone [facility] [address] [place] [address] Pattie Nieves Referral 11/24/2024 Telephone [facility] [address] [place] [address] Zheng Hess [facility] Referral 11/23/2024 Telephone [facility] [address] [place] [address] Zheng Hess, [facility] Referral 11/22/2024 7:00 AM CDT Telemedicine [facility] [address] [place] [address] Cris Robison NP Telehealth; Medication Management (Things are going okay) 11/18/2024 Travel 11/16/2024 E-Visit [facility] [address] [place] [address] Rui Wang MD Message about your results 11/15/2024 12:26 PM CDT - 11/15/2024 11:59 PM CDT Hospital Encounter [facility] EMG/EEG/EP [address] [address] Rui Wang MD Beck, MD Darryl Powers Jane D Paresthesia 11/15/2024 Travel 11/03/2024 1:25 PM CDT Office Visit [facility] [address] [place] [address] Rui Wang MD Pain (right sided pain- feels weak , is needing to help with movements ) 11/02/2024 Travel 10/27/2024 2:00 PM CDT Telemedicine [facility] [address] [place] [address] Cris Robison NP Telehealth; Medication Management (Things are going okay) 10/27/2024 Refill [facility] [address] [place] [address] Cris Robison NP Refill Request (Bupropion) 10/26/2024 Travel 09/27/2024 9:30 AM CDT Telemedicine [facility] [address] [place] [address] Ayo Salas, [facility] Visit; Telehealth 09/26/2024 1:00 PM CDT Telemedicine [facility] [address] [place] [address] Cris Robison NP Telehealth; Medication Management (Things are not good) 09/23/2024 Travel 09/21/2024 Travel from Last 3 Months Immunizations Immunization Administration Dates Next Due COVID-19 vaccine (Moderna [...] PHQ-2 Answer Date Recorded PHQ-2 TOTAL SCORE 6 11/21/2024 Social Connections Answer Date Recorded Do you [...] PM CDT Legal Sex Female 8:15 AM HEAD BELLHOP CAPTAIN Gender Identity Female 03/06/2020 4:05 AM CDT Sexual Orientation Straight 05/28/2023 9: 19 AM HEAD BELLHOP CAPTAIN Obstetrics History Para Term AB IAB SAB Ectopic Multiple Livin g Live Births 0 Last Filed Vital Signs Vital Sign Reading Time Taken Comments Blood Pressure 142/76 11/03/2024 2:25 PM CDT Pulse 114 11/03/2024 1:28 PM CDT Temperature 36.5 C (97.7 F) 06/20/2024 10:30 AM HEAD BELLHOP CAPTAIN Respiratory Rate 16 05/20/2024 5:26 PM CDT Oxygen Saturation 97% 11/03/2024 1:28 PM CDT Inhaled Oxygen Concentration - - Weight 132.6 kg (292 lb 6.4 oz) 024 10:30 AM HEAD BELLHOP CAPTAIN Height 167.6 cm (5' 6) 05/20/2024 11:2 6 AM CDT Body Mass Index 47.19 05/20/2024 11:26 AM CDT Plan of Treatment Upcoming Encounters Date Type Department Care Team (Late st Contact Info) Description 12/22/2024 2:00 PM CDT Telemedicine [facility] [address] [place] [address] Cris Robison NP [address] [place] [address] 02/09/2025 2:30 PM CDT Office Visit [facility] [address] [facility] [address] Earl Sifuentes MD [address] [place] [address] Health Maintenance Due Date Last Done Comments Hepatitis B series for 19+ (1 of 3 - 19+ 3-dose series) 2003 COVID-19 vaccine series (2023- season) 2024 05/16/2021, 09/12/2020, 08/15/2020 BMI (ht and wt on same day) for age 18+ 04/25/2025 04/25/2024, 03/09/2024, 08/05/2023, Additional history exists Depression screening for age 12+ 11/25/2025 11/25/2024, 11/24/2024, 11/23/2024, Additional history exists Pap test for age [...] Procedure Name Priority Date/Time Associated Diagnosis Comments EMG Routine 11/15/2024 Paresthesia CK TOTAL Routine 11/03/2024 2:32 PM CDT Weakness TSH WITH REFLEX Routine 11/03/2024 2:32 PM CDT Paresthesia HEMOGLOBIN A1C Routine 11/03/2024 2:32 PM CDT Paresthesia Other abnormal glucose ANTINUCLEAR ANTIBODY BY IFA Routine 11/03/2024 2:32 PM CDT Multiple joint pain Weakness HIV 1/2 ANTIGEN/ANTIBODY FOURTH GENERATION W/RFL ([facility]) Routine 04/12/2024 10:21 AM CDT ANTI HCV Routine 04/12/2024 10:21 AM CDT Need for hepatitis C screening test CORPORATE BUYER THIN PREP PAP SCREEN IMAGED Routine 02/19/2018 12:00 PM CDT from Last 3 Months or Most Recently Relevant to Health Maintenance Results * EMG (11/15/2024) Rui Wang MD NEUROLOGY ORD Final Result * ANTINUCLEAR ANTIBODY BY IFA (11/03/2024 2:32 PM CDT) LEIDA SCREEN, IFA NEGATIVE NEGATIVE [facility] Comment: LEIDA IFA is a first line screen for detecting the presence of up to approximately 150 autoantibodies in various autoimmune diseases. A negative LEIDA IFA result suggests an LEIDA-associated autoimmune disease is not present at this time, but is not definitive. If there is high clinical suspicion for Sjogren's syndrome, testing for anti-SS-A/Ro antibody should be considered. Anti-Gisel-1 antibody should be considered for clinically suspected inflammatory myopathies. AC-0: Negative International Consensus on LEIDA Patterns (https://doi.org/10.1515/jubo-7156-5868) For additional information, please refer to http://education.Design Clinicals.Spontly/faq/LFB802 (This link is being provided for informational/ educational purposes only.) Blood BLOOD SPECIMEN / Unknown 11/03/2024 2:32 PM CDT 11/03/2024 2:34 PM CDT Narrative [facility] - 11/04/2024 8:04 PM CDT FASTING:YES FASTING: YES Rui Wang MD CHEMISTRY Final Result [facility] [address] [place] [address], [facility] [address] [place] [address] * (ABNORMAL) HEMOGLOBIN A1C (11/03/2024 2:32 PM CDT) HEMOGLOBIN A1C 6.0(H) <5.7 % [facility] Comment: For someone without known diabetes, a hemoglobin A1c value between 5.7% and 6.4% is consistent with prediabetes and should be confirmed with a follow-up test. For someone with known diabetes, a value <7% indicates that their diabetes is well controlled. A1c targets should be individualized based on duration of diabetes, age, comorbid conditions, and other considerations. This assay result is consistent with an increased risk of diabetes. Currently, no consensus exists regarding use of hemoglobin A1c for diagnosis of diabetes for children. Blood BLOOD SPECIMEN / Unknown 11/03/2024 2:32 PM CDT 11/03/2024 2:34 PM CDT Narrative [facility] - 11/04/2024 3:47 AM CDT FASTING:YES FASTING: YES Rui Wang MD CHEMISTRY Final Result [employer] [facility] [address] [place] [address], [facility] [address] [place] [address] * TSH WITH REFLEX (11/03/2024 2:32 PM CDT) TSH W/REFLEX TO FT4 0.96 mIU/L [facility] Comment: Reference Range > or = 20 Years 0.40-4.50 Ranges First trimester 0.26-2.66 Second trimester 0.55-2.73 Third trimester 0.43-2.91 Blood BLOOD SPECIMEN / Unknown 11/03/2024 2:32 PM CDT 11/03/2024 2:34 PM CDT Narrative [facility] - 11/04/2024 5:43 AM CDT FASTING:YES FASTING: YES Rui Wang MD CHEMISTRY Final Result Performing Organization Address City/[facility]/ZIP Co de Phone Number [facility] [address] [place] [address], [facility] [address] [place] [address] * CK TOTAL (11/03/2024 2:32 PM CDT) CREATINE KINASE, TOTAL 103 20 - 239 U/L [facility] Blood BLOOD SPECIMEN / Unknown 11/03/2024 2:32 PM CDT 11/03/2024 2:34 PM CDT Narrative [facility] - 11/04/2024 3:39 AM CDT FASTING:YES FASTING: YES Rui Wang MD CHEMISTRY Final Result Performing Organization Address [facility] Co de Phone Number [employer] [facility] [address] [place] [address], [facility] [address] [place] [address] * HIV 1/2 ANTIGEN/ANTIBODY FOURTH GENERATION W/RFL ([facility]) (04/12/2024 10:21 AM CDT) HIV AG/AB, 4TH GEN NON-REACT SCOUT NON-REACT SCOUT [facility] [place] Comment: HIV-1 antigen and HIV-1/HIV-2 antibodies were [...] purpose. For additional information please refer to http://education.[facility].com/faq/EBW447 (This link is being provided for informational/ educational purposes only.) The performance of this assay has not been clinically validated in patients less than 2 years old. 04/12/2024 10:2 1 AM CDT 04/12/2024 10:25 AM CDT Kati Smallwood MD SEND OUTS Final R esult Performing Organization Address City/[facility]/ZIP Co de Phone Number [employer] [facility] [address] [place] [address], [facility] [address] [place] [address] * ANTI HCV (04/12/2024 10:21 AM CDT) HEPATITIS C ANTIBODY NON-REACTI VE NON-REACT SCOUT [facility] Comment: HCV antibody was non-reactive. There is no laboratory evidence of HCV infection. In most cases, no further action is required. However, if recent HCV exposure is suspected, a test for HCV RNA (test code 45027) is suggested. For additional information please refer to http://Accelereach.[employer] Beyond/faq/JMW33i9 (This link is being provided for informational/ educational purposes only.) Blood BLOOD SPECIMEN / Unknown 04/12/2024 10:21 AM CDT 04/12/2024 10:25 AM CDT Kati Smallwood MD SEND OUTS Final R esult Performing Organization Address [facility]/ZIP Co de Phone Number [employer] [facility] [address] [place] [address], [facility] [address] [place] [address] * CORPORATE BUYER THIN PREP PAP SCREEN IMAGED (02/19/2018 12:00 PM CDT) Case Report Gynecologic Cytology Report Case: [id number] Authorizing Provider: Yana Linder Collected: 02/19/2018 Rizwana Somers MD First Screen: Cande Eisenberg Received: 02/22/2018 1611 Specimen: CORPORATE BUYER ThinPrep Vial Screening, Cervical/Vaginal 03/05/2018 2:19 PM CDT [facility] INTERPRETATION/ RESULT NEGATIVE FOR INTRAEPITHELIAL LESION OR MALIGNANCY (NIL) (none) 03/05/2018 2:19 PM CDT [facility] at 1419 CDT SPECIMEN ADEQUACY Satisfactory for evaluation Endocervical component present 03/05/2018 2:19 PM CDT [facility] HPV REQUEST HPV and PAP 03/05/2018 2:19 PM CDT [facility] Date of LMP 02/16/2018 03/05/2018 2:19 PM CDT [facility] Last Pap Date 03/05/2018 2:19 PM CDT [facility] Comment:UNKNOWN Automated Review Successful 03/05/2018 2:19 PM CDT [facility] Comment:Specimen processed s uccessfully by automated lopper device, ThinPrep Imaging System, [employer] ANCILLARY TESTING CORPORATE BUYER HPV Ordered, Please see separate report 03/05/2018 2:19 PM CDT [facility] Note The pap test is a [...] lesions. Cytology is screened and interpreted at [facility] - [address], [place] [address] and [facility] - [address] [place] [address]; [place] [address] and [facility] - [address]; [place] [address] [address] [facility] [address]; [place] [address] 03/05/2018 2:19 PM CDT [facility] Other (Cervical/Vagina l) 02/19/2018 12:00 PM CDT 02/22/2018 4:11 PM CDT Yana Linder MD PATHOLOGY/CYTOLOGY Final Result [facility] [address] [place] [address], [place] from Last 3 Months or Most Recently Relevant to Health Maintenance Insurance MEDICARE [place] ONLY MEDICARE PART B [place] ONLY Member Subscriber Plan / Payer (Ef fective 2024-Present) Name:Erica Canales Member ID:[id number] Relation to Subscriber:Self Name:Erica Canales Subscriber ID:[id number] Payer ID:Not on file Group ID:Not on file Type:Not on file Address: ATTN: CLAIMS [address] [place] [id number] MEDICARE PART A [place] ONLY Advance Directives * Full Code (Latest Code Status on File) Date Activated Date Inactivated Comments 05/20/2024 10:59 AM 05/20/2024 7:53 PM Question Answer Comments Code Status Discussion: Reviewed Preferences * Full Code Date Activated Date Inactivated Comments 04/22/2024 9:43 AM 04/22/2024 3:28 PM Question Answer Comments Code Status Discussion: Reviewed Preferences Care Teams Director Of Knowledge Management Relationship Specialty Start Date End Date Kati Smallwood MD [address] [place] [address] PCP - General Family Practice 04/28/17 Cris Robison NP [address] [place] [address] Psychiatry Nurse Practitioner 09/26/20
--- NOTE | 2024-12-20 14:07 | ED.GENADULT ---
HPI - General Adult General Chief complaint: Back Injury/Pain Stated complaint: Back Pain Time Seen by Provider: 12/20/24 14:00 History of Present Illness HPI narrative: c/o back pain x 2 days, arrived via ems , able to roll slef onto hospital bed. ems started #22 L hand, no meds given. 39-year-old woman presenting to the emergency department with concern of right back area pain. Was seen by me nearly 4 months ago with similar area pain ultimately thought to have chest wall pain. They report that it just improved over couple of days. Does not sound as though they took any regular medication though she had received a few tablets of [place] and lidocaine patch on discharge. She reports in the meantime has been diagnosed with fibromyalgia. Initially said not receiving any treatment for this but does show me that was prescribed duloxetine. Began having an inkling of pain in the left mid back couple of days ago and has only escalated. Now within transitions just have severe pain. Palpation also causes pain. She says it feels like somebody is taking a hot knife and twisting it in. No dysuria frequency or hematuria. No abdominal pain. Denies cough or cold symptoms although partner says that she does cough at night and couple of nights ago she did probably have a jag of coughing. No trauma otherwise. No fever. May have tried friends baclofen without relief as well as I think a tablet of oxycodone; also without relief Arrives via EMS. Related Data Home Medications ?Medication ?Instructions ?Recorded ?Confirmed bupropion HCl 300 mg 24 hr tablet, 300 mg PO DAILY 02/24/22 12/20/24 extended release buspirone 15 mg tablet 15 mg PO BID 02/24/22 12/20/24 levocetirizine 5 mg tablet 5 mg PO QDAY 02/24/22 12/20/24 omeprazole 20 mg capsule,delayed 20 mg PO BID 02/24/22 12/20/24 release prazosin 2 mg capsule 2 mg PO QDAY 02/24/22 12/20/24 duloxetine 30 mg capsule,delayed mg PO 12/20/24 release hydroxyzine HCl 25 mg tablet mg PO 12/20/24 Previous Rx's ?Medication ?Instructions ?Recorded ibuprofen 600 mg tablet 600 mg PO Q8H PRN #30 tabs 09/04/24 diazepam 5 mg tablet (Valium) 2.5 - 5 mg (0.5 - 1 x 5 mg) PO BID 12/20/24 PRN muscle spasm #6 tabs Allergies Allergy/AdvReac Type Severity Reaction Status Date / Time No Known Drug Allergies Allergy Verified 09/04/24 04:44 Review of Systems Status of ROS: Reports: 6 or more systems reviewed and unremarkable except as noted in History and below PFSH PFSH Social History Smoking Status: Never smoker Second hand tobacco smoke exposure: No How often do you have a drink containing alcohol: never AUDIT-C Alcohol total score: 0 Non-prescribed substance use: denies use Exam Narrative: Exam Narrative: Pleasant. Good energy. With some discomfort and effort is able to transition herself from the EMS cot onto ER bed. Breathing easily. Examination of the back reveals no deformity. Overweight. No SI joint tenderness. Palpation in the left low the area causes significant pain. During effort at transition going to sit up she begins to have spasm of pain. She feels like she just can not move anymore. She is gasping and groaning in discomfort. Lungs appear to be clear. Heart rate is elevated. Regular rhythm. Skin is warm and dry without rash. Here with service dog Const: Vital Signs, click to edit/add: Vital Signs - 24 hr 12/20/24 14:02 12/20/24 15:15 12/20/24 15:30 Temperature 98.7 F Pulse Rate 90 Pulse Rate [Pulse Oximeter] 97 100 Respiratory Rate 20 16 14 Blood Pressure Blood Pressure [Ri ght Upper Arm] 122/82 Pulse Oximetry 94 92 94 Oxygen Delivery Me thod Room Air Room Air 12/20/24 15:55 12/20/24 15:59 12/20/24 16:00 Temperature Pulse Rate 104 H Pulse Rate [Pulse Oximeter] 105 H Respiratory Rate 14 Blood Pressure 116/71 Blood Pressure [Ri ght Upper Arm] 116/71 Pulse Oximetry 96 96 Oxygen Delivery Me thod Room Air 12/20/24 17:53 12/20/24 17:54 12/20/24 18:00 Temperature Pulse Rate 103 H 100 105 H Pulse Rate [Pulse Oximeter] Respiratory Rate Blood Pressure 125/96 H Blood Pressure [Ri ght Upper Arm] Pulse Oximetry 96 94 95 Oxygen Delivery Me thod 12/20/24 18:02 06/03/25 18:03 12/20/24 18:15 Temperature Pulse Rate 103 H 105 H 108 H Pulse Rate [Pulse Oximeter] Respiratory Rate Blood Pressure 146/91 H Blood Pressure [Ri ght Upper Arm] Pulse Oximetry 95 95 95 Oxygen Delivery Me thod 12/20/24 18:17 12/20/24 18:31 12/20/24 18:35 Temperature Pulse Rate 110 H 105 H 105 H Pulse Rate [Pulse Oximeter] Respiratory Rate 22 Blood Pressure 129/89 Blood Pressure [Ri ght Upper Arm] Pulse Oximetry 95 95 95 Oxygen Delivery Me thod Documenting provider has reviewed patient's vital signs: yes Course Vital Signs Vital signs: Initial Vital Signs Temperature 98.7 F 12/20/24 14:02 Temperature Source Temporal Artery Scan 12/20/24 14:02 Pulse Rate 97 12/20/24 14:02 Respiratory Rate 20 12/20/24 14:02 Blood Pressure 122/82 12/20/24 14:02 Blood Pressure Mean 95 12/20/24 14:02 Pulse Oximetry 94 12/20/24 14:02 Oxygen Delivery Method Room Air 12/20/24 14:02 Vital Signs Temperature 98.7 F 12/20/24 14:02 Pulse Rate 97 12/20/24 14:02 Respiratory Rate 20 12/20/24 14:02 Blood Pressure 122/82 12/20/24 14:02 Pulse Oximetry 94 12/20/24 14:02 Oxygen Delivery Method Room Air 12/20/24 14:02 Temperature 98.7 F 12/20/24 14:02 Pulse Rate 105 H 12/20/24 18:35 Respiratory Rate 22 12/20/24 18:17 Blood Pressure 129/89 12/20/24 18:17 Pulse Oximetry 95 12/20/24 18:35 Oxygen Delivery Method Room Air 12/20/24 16:00 Medications Administered Medications: Discontinued Medications Generic Name Dose Route Start Last Admin Trade Name Freq PRN Reason Stop Dose Admin Diazepam 5 mg 12/20/24 14:37 12/20/24 14:54 Diazepam 5 Mg/Ml Inj IV 12/20/24 14:38 5 mg ONCE ONE Administration Sodium Chloride 500 mls @ 1,000 mls/hr 12/20/24 15:29 12/20/24 16:34 0.9 % Sodium Chloride 500 Ml IV 12/20/24 15:58 Infused .Q30M ONE Infusion Ketamine HCl 20 mg/ Sodium 100.2 mls @ 200.4 mls/hr 12/20/24 17:27 12/20/24 17:48 Chloride IVPB 12/20/24 17:28 200.4 mls/hr ONCE ONE Administration Ketorolac Tromethamine 30 mg 12/20/24 14:37 12/20/24 14:54 Ketorolac 30 Mg/Ml Inj IVP 12/20/24 14:38 30 mg ONCE ONE Administration Lidocaine 1 patch 12/20/24 14:37 12/20/24 15:00 Lidocaine 5% Patch TRANSDERMA 12/20/24 14:38 1 patch ONCE ONE Administration Protocol Morphine Sulfate 4 mg 12/20/24 14:39 12/20/24 14:55 Morphine 4 Mg/Ml Inj IVP 12/20/24 14:40 4 mg ONCE ONE Administration Medical Decision Making MDM Narrative Medical decision making narrative: She appears tense and is tender to even light touch in her low back. I suspect may have sustained some sort of rib strain if you will. Does not seem consistent with ureteral stone and colic. I do review chest CTA that was done at last visit. I do not see any kidney stones however only visualized the top 3rd of the kidneys. At this point I think I would focus on pain relief. Will image the chest in this area with a chest x-ray. Screen urine. IV is established. Will receive 500 mL of normal saline partly to prompt urine collection. After discussion of options given a dose of Valium, ketorolac and morphine. I also then place a lidocaine patch. Chest x-ray with with left-sided rib views apparently reviewed by me -- I cannot appreciate any acute abnormality; no displaced rib fractures. On reassessment pain is about half. She was able to sleep. Pain is started escalate though during conversation. More frequent spasming of pain. Urinalysis is unremarkable Again after discussing options decided to give ketamine pain dosed. This resulted in marked improvement. I think considering that movement is a particular cause of exacerbation perhaps a rib binder, or all we have here I think are abdominal binders, would be beneficial. This also was placed and appears to help discomfort. See patient discharge plan for further discussion If you find this abdominal binder helpful, the support might limit discomfort when you move, can continue to use it. I know it's hard to get around nowadays but I think physical activity is important. Increasing activity will ultimately help you with your pains. Every few days just try to increase the amount of activity you are doing. Stretching is important too. I am giving some handouts, stretches for low back pain and upper back pain that might be beneficial to do every day for a long time. Over the next week I would continue with your twice daily dosing naproxen. I am also sending in a prescription for the Valium as discussed. Medical Records Medical records reviewed: Yes I reviewed the patient's medical records Lab Data Lab results reviewed: Yes I reviewed the patient's lab results Labs: Lab Results 12/20/24 Range/Units 16:45 Urine Color Yellow (Yellow) Urine Appearance Slightly Cloudy A (Clear) Urine pH 7.5 (5.0-8.5) Ur Specific [place] 1.020 (1.000-1.030) Urine Protein Negative (Negative) Urine Glucose (UA) Negative (Negative) Urine Ketones Negative (Negative) Urine Blood Negative (Negative) Urine Nitrite Negative (Negative) Urine Bilirubin Negative (Negative) Urine Urobilinogen 1.0 (0.2-1.0) Ur Leukocyte Esterase Negative (Negative) Urine RBC 0-2 (0-2) Urine WBC 0-2 (0-5) Ur Squamous Epith Cells Moderate A (None-Few) Urine Bacteria None (None) Discharge Plan Discharge Clinical Impression: Muscle spasm, Rib sprain Patient Disposition: Home w/ Parent or Adult Condition: Improved Additional Instructions: If you find this abdominal binder helpful, the support might limit discomfort when you move, can continue to use it. I know it's hard to get around nowadays but I think physical activity is important. Increasing activity will ultimately help you with your pains. Every few days just try to increase the amount of activity you are doing. Stretching is important too. I am giving some handouts, stretches for low back pain and upper back pain that might be beneficial to do every day for a long time. Over the next week I would continue with your twice daily dosing naproxen. I am also sending in a prescription for the Valium as discussed. Prescriptions: New diazepam [Valium] 5 mg tablet 2.5 - 5 mg PO BID PRN (Reason: muscle spasm) Qty: 6 0RF No Action prazosin 2 mg capsule 2 mg PO QDAY bupropion HCl 300 mg tablet extended release 24 hr 300 mg PO DAILY omeprazole 20 mg capsule,delayed release(DR/EC) 20 mg PO BID levocetirizine 5 mg tablet 5 mg PO QDAY buspirone 15 mg tablet 15 mg PO BID duloxetine 30 mg capsule,delayed release(DR/EC) PO hydroxyzine HCl 25 mg tablet PO ibuprofen 600 mg tablet 600 mg PO Q8H PRNQty: 30 0RF Follow Up/Referrals: Kati Smallwood MD [Primary Care Provider, Family Practice] [facility] Info Inst[facility]
--- NOTE | 2024-12-20 14:37 | CRLHL7_ITS ---
For Patients: As a result of the Cures Act, medical imaging exams and procedure reports are released immediately into your electronic medical record. You may view this report before your referring provider. If you have questions, please contact your health care provider. INDICATION: Injury and pain. TECHNIQUE: Chest and left ribs 3 views. COMPARISON: September 19, 2020. FINDINGS: Cardiovascular and mediastinum: Heart size and vasculature are normal in caliber and appearance. Mediastinum is within normal limits. Lungs and pleural spaces: Lungs are clear. No sign of infiltrate or mass. No sign of pleural effusion. No pneumothorax. Bones and soft tissues: Detailed oblique images of the left ribs demonstrate no fractures or bone lesions. IMPRESSION: Unremarkable chest and left ribs. Dictated by Prachi Lyman MD @ 12/20/2024 4:45:16 PM (Electronically Signed)
[2024-12-20] MEDS: KETOROLAC 30 MG/ML inj IVP (14:54)
[2024-12-20] MEDS: diazePAM 5 MG/ML inj IV (14:54)
[2024-12-20] MEDS: MORPHINE 4 MG/ML INJ IVP (14:55)
--- OUTSIDE RECORDS SUMMARY | 2024-12-20 14:59 | XMS_ITS | CCD ---
Author Organization Unknown Care Team Providers Care Molder Labels Name Role Phone Scrap [place], [place] Primary Care Provider Unava ilable Unavailable Chronic Care Management Unavaila ble Summary Purpose DataExchange Insurance Providers Payer name Policy type / Coverage type Covered constitution party ID Effective Begin Date Effective End Date U[employer] Commercial Insurance [id number] Unkn own Medicaid [place] Commercial Insurance [id number] Unk nown Family History Family History data not found Medication Administered No Medication Administered data Reason For Visit No Reason For Visit data
--- OUTSIDE RECORDS SUMMARY | 2024-12-20 14:59 | XMS_ITS | CCD ---
Author Organization Unknown Care Team Providers Care Fish And Wildlife Warden Name Role Phone [place], [place] Primary Care Provider Unava ilable Unavailable Chronic Care Management Unavaila ble Summary Purpose DataExchange Insurance Providers Payer name Policy type / Coverage type Covered democrat ID Effective Begin Date Effective End Date Ucare Commercial Insurance [id number] Unkn own Medicaid [place] Commercial Insurance [id number] Unk nown Family History Family History data not found Medication Administered No Medication Administered data Reason For Visit No Reason For Visit data
[2024-12-20] MEDS: LIDOCAINE 5% PATCH 1 PATCH TRANSDERMA (15:00)
--- OUTSIDE RECORDS SUMMARY | 2024-12-20 15:28 | XMS_ITS | CCD ---
Author Organization Unknown Care Team Providers Care Snow Removal Supervisor Name Role Phone Guyline Operator, [place] Primary Care Provider Unava ilable Unavailable Chronic Care Management Unavaila ble Summary Purpose DataExchange Insurance Providers Payer name Policy type / Coverage type Covered green party ID Effective Begin Date Effective End Date Ucare Commercial Insurance [id number] Unkn own Medicaid [place] Commercial Insurance [id number] Unk nown Family History Family History data not found Medication Administered No Medication Administered data Reason For Visit No Reason For Visit data
--- OUTSIDE RECORDS SUMMARY | 2024-12-20 15:28 | XMS_ITS | CCD ---
Author Organization Unknown Care Team Providers Care Fisher Diver Net Name Role Phone Applications Developer, [place] Primary Care Provider Unava ilable Unavailable Chronic Care Management Unavaila ble Summary Purpose DataExchange Insurance Providers Payer name Policy type / Coverage type Covered constitution party ID Effective Begin Date Effective End Date Ucare Commercial Insurance [id number] Unkn own Medicaid [place] Commercial Insurance [id number] Unk nown Family History Family History data not found Medication Administered No Medication Administered data Reason For Visit No Reason For Visit data
[2024-12-20] MEDS: 0.9 % SODIUM CHLORIDE 500 ML 500 ML 1000 ML IV (15:45)
[2024-12-20 16:58] LABS: Appearance Urine Slightly Cloudy (Clear); Bilirubin Urine Negative (Negative); Blood Urine Negative (Negative); Color Urine Yellow (Yellow); Glucose Urine Negative (Negative); Ketones Urine Negative (Negative); Leukocyte Esterase Urine Negative (Negative); Nitrite Urine Negative (Negative); Protein Urine Negative (Negative); pH Urine 7.5 (5.0-8.5)
[2024-12-20 17:02] LABS: RBC Urine 0-2 (0-2); Squamous Epithelial Cell Urine Moderate (None-Few); WBC Urine 0-2 (0-5)
[2024-12-20] MEDS: KETAMINE 50 MG/0.5 ML 20 MG in 0.9 % SODIUM CHLORIDE 100 ml 100 ML 200.4 MG IVPB (17:48)
== END 2024-12-20 18:47 | disposition home or self-care (01) ==
PROVIDERS: Emergency Provider Family Medicine; PCP Family Medicine
DX: S23.41XA Sprain of ribs, initial encounter (principal); M62.838 Other muscle spasm; M79.7 Fibromyalgia; Z79.899 Other long term (current) drug therapy
CPT/HCPCS: 71101; 81001; 96374; 96375; 99284; A9270; J1885; J2270; J3360; J3490; J7030

== ENCOUNTER 2025-01-25 14:23 | Outpatient (CLI) | payer MEDICARE, SELFPAY ==
--- NOTE | 2025-01-25 14:30 | CRLHL7_ITS ---
For Patients: As a result of the Century Cures Act, medical imaging exams and procedure reports are released immediately into your electronic medical record. You may view this report before your referring provider. If you have questions, please contact your health care provider. INDICATION: Neck pain. TECHNIQUE: Noncontrast sagittal T1, T2, STIR and axial GRE sequences are provided. No comparisons. FINDINGS: The overall stature, alignment and intrinsic marrow signal of the cervical spine is within normal limits. Minor prominence of the spinal central canal at the C6-7 level measuring 1 millimeter in maximum diameter which can be a normal developmental variant. Otherwise, cervical cord is normal. No suspicious disc bulges or protrusions. No suspicious central canal or foraminal narrowing. IMPRESSION: Unremarkable MRI of the cervical spine. Dictated by Schuyler Damico MD @ 01/25/2025 4:56:34 PM (Electronically Signed)
--- NOTE | 2025-01-25 15:30 | CRLHL7_ITS ---
For Patients: As a result of the Cures Act, medical imaging exams and procedure reports are released immediately into your electronic medical record. You may view this report before your referring provider. If you have questions, please contact your health care provider. Indication: Unilateral primary osteoarthritis, right knee Technique: Right knee 2 views Comparison: None Findings: Mild tricompartmental spurring. No fracture. No joint effusion. Alignment normal. Impression: Mild tricompartmental degenerative joint disease. Dictated by Javid Kenyon MD @ 01/25/2025 4:06:05 PM (Electronically Signed)
== END 2025-01-25 14:24 | disposition home or self-care (01) ==
LOC: MRI 14:26
PROVIDERS: PCP Family Medicine; Visit Provider Family Medicine
DX: M54.2 Cervicalgia (principal); M54.12 Radiculopathy, cervical region; M17.11 Unilateral primary osteoarthritis, right knee
CPT/HCPCS: 72141; 73560

== ENCOUNTER 2025-02-17 19:01 | Emergency (ER) | payer MEDICARE, SELFPAY ==
--- OUTSIDE RECORDS SUMMARY | 2025-02-14 07:25 | XMS_ITS | Continuity of Care Document ---
Author Organization [facility] Address [address] [place] [address] Phone Care Team Providers Care Pen Rider Name Role Phone [facility] Unavailable Unavai lable Allergies, Adverse Reactions, Alerts Substance Reaction Status Criticality lactose Active No Information WARNIN allergy(ies) could not be collected because the type is not supported. Please contact the source practice for further details. Medications Medication Instructions Dosage Effective Dates (start - stop) Status Comments prazosin 1 mg capsule take 2 capsule by oral route every bedtime 2 MG - Active omeprazole 20 mg capsule,delayed release take 1 capsule by oral route every day 30 minutes to 1 hour before a meal 20 MG - Active levocetirizine 5 mg tablet take 1 tablet by oral route every day in the evening 5 MG - Active hydroxyzine HCl 25 mg tablet take 2 tablet by oral route every day as needed 50 MG - Active bupropion HCl XL 300 mg 24 hr tablet, extended release take 1 tablet by oral route every day 300 MG - Active Bucapsol 15 mg capsule take 1 capsule by oral route 2 times every day 15 MG - Active Procedures Procedure Date Inject, Spine, Cerv/Thor, Epi/subarc w/i mg Guid Inject, Spine, Cerv/Thor, Epi/subarc w/i mg Guid Verified No Separate Anesthesia 025 Est Pt Eval Telehealth New Pt Eval Moderate Advance Directives Directive Yes / No Effective Date File Name No Information Encounters Encounter Description Practice Location Reason(s) For Visit Diagnoses Date Provider Providers Copied on Encounter [facility], [address], [place], [address], [place] tel:[phone] [facility] neck pain (chief complaint) Radiculopathy, cervical regionRadiculopath y, cervical region 5 [facility]. [address], [place], [place], [id number], [place]. tel:[phone] Referring Provider: Henrietta Cruz , [address], [place], [address]. tel:[phone] [facility], [address], [place], [place], [id number], [place] tel:[phone] [facility] No Information 5 Nancy Henrietta. [address], [place], [address], [place]. tel:[phone] Referring Provider: Henrietta Cruz , [address], [place], [address]. tel:[phone] [facility], [address], [place], [place], [id number], [place] tel:[phone] [facility] No Information 5 Nancy Henrietta. [address], [place], [address], [place]. tel:[phone] Referring Provider: Kati Smallwood MD [address] [facility], [place], [address]. tel:[phone] Est Pt Eval Telehealth [facility], [address], [place], [place], [id number], [place] tel:[phone] [facility] body pain (chief complaint) FibromyalgiaRadicu lopathy, cervical regionPrimary osteoarthritis of right kneePain in right armMyalgia 5 [facility]. [address], [place], [place], [id number], [place]. tel:[phone] Referring Provider: Kati Guajardo, [address] [facility], [place], [address]. tel:[phone] New Pt Eval Moderate [facility], [address], [place], [place], [id number], [place] tel:[phone] [facility] pain (chief complaint) FibromyalgiaPrimar y osteoarthritis of right kneeBody mass index (BMI) 45.0-49.9, adultElevated blood-pressure reading, w/o diagnosis of htnPain in right armRadiculopathy, cervical region 5 [facility]. [address], [place], [address], [place]. tel:[phone] Referring Provider: Kati Guajardo, [address] [place], [address]. tel:[phone] Family History Family Member Type Diagnosis Age At Onset Father Problem (finding) Family history of Illeg al Drug Abuse Father Problem (finding) Family history of Alcoh olism Payers Payer name Insurance type Covered libertarian ID Authoriza tion(s) Medicare Part B [id number] Social History Type Description Quantity Date Captured Comments Sex Female Smoking Status No Information Chief Complaint And Reason For Visit No Information Reason For Referral Reason For Referral No Information Plan Of Treatment Date Type Action Status Appointment Erica Canales BOOKED History Of Present Illness Encounter Date Complaint History Of Prese nt Illness neck pain The pain is loca guerrero in the right posterior neck. The neck pain radiates into the right shoulder. body pain The pain is loca guerrero in the all over my body from head to foot. The pain pattern also includes the right shoulder, lower back, neck, bilateral hip and right knee. Pain intensity is currently 5/10.The pain has been fluctuating . The pain is constant. The pain is described as burning and shooting.The patient denies aggravating factors. The following activities make the pain better: lying down. body pain The pain is loca guerrero in the all over my body from head to foot. The pain pattern also includes the r shoulder, R neck, r knee and low back. The patient states the pain has been ongoing for many years. Pain intensity is currently 9/10.The pain is constant. The pain is described as aching, burning and sharp. The following activities make the pain worse: walking, heat and stairs. The following activities make the pain better: heat, topicals and water. Additional information: Fibromyalgia. Functional Status Date Functional Assessmen t No Information Instructions Date Instruction Additional Infor stephanie - Follow up in the [facility] in 2-3 weeks to discuss the results of today's procedure Related to Radiculopathy, cervical region Medications: - Sheri nue duloxetine 60 mg take 1 capsule 1x/day- Continue duloxetine 30 mg take 1 capsule 1x/dayAppointments:- Keep 02/28/25 telehealth appointment with JAI Aranda Related to Fibromyalgia - Keep 02/14/25 appo intment for cervical epidural steroid injection * If you would like sedation, please do not eat or drink for 8 hours prior to procedure. This includes hard candy, mints, and gum. Please bring a wedding transportation driver as well.- Ordered trigger point injections for neck pain today. Schedule this if insurance does not approve cervical injection- Consider trying physical therapy for your neck* Call [facility]'s triage line [phone] and let us know where you want the referral sent to Related to Radiculopathy, cervical region Procedures: - Ordere d right knee joint injections today* This will be done without sedation at the [place] location* Can call [phone] to schedule Related to Primary osteoarthritis of right knee - Prescribed duloxet ine 60 mg take 1 capsule 1x/day, #30 capsules, for fill today 01/11/25. - Prescribed duloxetine 30 mg take 1 capsule 1x/day, #30 capsules, for fill today 01/11/25. - Follow up in 2 weeks with an AMANDA, just.me stephanie. Related to Fibromyalgia - Ordered a cervical epidural steroid injection with sedation. *With sedation, do not eat or drink 8hrs prior to procedure and must have wedding transportation driver.- Ordered a cervical MRI through [facility].*They will call you to schedule. Related to Radiculopathy, cervical region - Ordered a right kn ee X-ray through [facility].*They will call you to schedule. Related to Primary osteoarthritis of right knee Giving encouragement to exercise Related to Body mass index [BMI] 45.0-49.9, adult Giving encouragement to exercise Related to Elevated blood-pressure reading, w/o diagnosis of htn Assessments Type Assessment Date No Information Patient Care Teams Name Effective Dates (start - stop) Status Members No Information
--- OUTSIDE RECORDS SUMMARY | 2025-02-14 07:25 | XMS_ITS | Continuity of Care Document ---
Author Organization [facility] Address [address] [place] [address] Phone Care Team Providers Care Licensed Retail Supervisor Name Role Phone [facility] Unavailable Unavai lable Allergies, Adverse Reactions, Alerts Substance Reaction Status Criticality lactose Active No Information WARNIN allergy(ies) could not be collected because the type is not supported. Please contact the source practice for further details. Medications Medication Instructions Dosage Effective Dates (start - stop) Status Comments hydroxyzine HCl 25 mg tablet take 2 tablet by oral route every day as needed 50 MG - Active bupropion HCl XL 300 mg 24 hr tablet, extended release take 1 tablet by oral route every day 300 MG - Active Bucapsol 15 mg capsule take 1 capsule by oral route 2 times every day 15 MG - Active levocetirizine 5 mg tablet take 1 tablet by oral route every day in the evening 5 MG - Active omeprazole 20 mg capsule,delayed release take 1 capsule by oral route every day 30 minutes to 1 hour before a meal 20 MG - Active prazosin 1 mg capsule take 2 capsule by oral route every bedtime 2 MG - Active Procedures Procedure Date Inject, Spine, Cerv/Thor, Epi/subarc w/i mg Guid Inject, Spine, Cerv/Thor, Epi/subarc w/i mg Guid Verified No Separate Anesthesia 025 Est Pt Eval Telehealth New Pt Eval Moderate Advance Directives Directive Yes / No Effective Date File Name No Information Encounters Encounter Description Practice Location Reason(s) For Visit Diagnoses Date Provider Providers Copied on Encounter [facility], [address], [place], [address], [place] tel:[phone] [facility] neck pain (chief complaint) Radiculopathy, cervical regionRadiculopath y, cervical region 5 [facility]. [address], [place], [place], [id number], [place]. tel:[phone] Referring Provider: Henrietta Cruz , [address], [place], [address]. tel:[phone] [facility], [address], [place], [place], [id number], [place] tel:[phone] [facility] No Information 5 Nancy Henrietta. [address], [place], [address], [place]. tel:[phone] Referring Provider: Henrietta Cruz , [address], [place], [address]. tel:[phone] [facility], [address], [place], [place], [id number], [place] tel:[phone] [facility] No Information 5 Nancy Henrietta. [address], [place], [address], [place]. tel:[phone] Referring Provider: Kati Smallwood MD [address], [address] [facility], [place], [address]. tel:[phone] Est Pt Eval Telehealth [facility], [address], [place], [place], [id number], [place] tel:[phone] [facility] body pain (chief complaint) FibromyalgiaRadicu lopathy, cervical regionPrimary osteoarthritis of right kneePain in right armMyalgia 5 [facility]. [address], [place], [place], [id number], [place]. tel:[phone] Referring Provider: Kati Guajardo, [address] [facility], [place], [address]. tel:[phone] New Pt Eval Moderate [facility], [address], [place], [place], [id number], [place] tel:[phone] [facility] (chief complaint) FibromyalgiaPrimar y osteoarthritis of right kneeBody mass index (BMI) 45.0-49.9, adultElevated blood-pressure reading, w/o diagnosis of htnPain in right armRadiculopathy, cervical region 5 Aissat[facility] Sotelo. [address], [place], [address], [place]. tel:[phone] Referring Provider: Kati Guajardo, [address] [place], [address]. tel:[phone] Family History Family Member Type Diagnosis Age At Onset Father Problem (finding) Family history of Illeg al Drug Abuse Father Problem (finding) Family history of Alcoh olism Payers Payer name Insurance type Covered libertarian ID Authoriza tion(s) Medicare Part B [id number] Social History Type Description Quantity Date Captured [...] Infor stephanie - [facility] 2[facility]3 weeks to discuss the results of today's procedure Related to Radiculopathy, cervical region - Keep 02/14/25 appo intment for cervical epidural steroid injection * If you would like sedation, please do not eat or drink for 8 hours prior to procedure. This includes hard candy, mints, and gum. Please bring a driver's education instructor as well.- Ordered trigger point injections for neck pain today. Schedule this if insurance does not approve cervical injection- Consider trying physical therapy for your neck* Call [facility] triage line [phone] and let us know where you want the referral sent to Related to Radiculopathy, cervical region Procedures: - Ordere d right knee joint injections today* This will be done without sedation at the [place] location* Can call [phone] to schedule Related to Primary osteoarthritis of right knee Medications: - Sheri nue duloxetine 60 mg take 1 capsule 1x/day- Continue duloxetine 30 mg take 1 capsule 1x/dayAppointments:- Keep 02/28/25 telehealth appointment with JAI Aranda Related to Fibromyalgia - Prescribed duloxet ine 60 mg take 1 capsule 1x/day, #30 capsules, for fill today 01/11/25. - Prescribed duloxetine 30 mg take 1 capsule 1x/day, #30 capsules, for fill today 01/11/25. - Follow up in 2 weeks with an AMANDA, [employer] stephanie. Related to Fibromyalgia - Ordered a cervical epidural steroid injection with sedation. *With sedation, do not eat or drink 8hrs prior to procedure and must have driver's education instructor.- Ordered a cervical MRI through [facility].*They will call you to schedule. Related to Radiculopathy, cervical region - Ordered a right kn ee X-ray through [facility].*They will call you to schedule. Related to Primary osteoarthritis of right knee Giving encouragement to exercise Related to Body mass index [BMI] 45.0-49.9, adult Giving encouragement to exercise Related to Elevated blood-pressure reading, w/o diagnosis of htn Assessments Type Assessment Date No Information Patient Care Teams Name Effective Dates (start - stop) Status Members No Information
--- OUTSIDE RECORDS SUMMARY | 2025-02-17 19:04 | XMS_ITS | Clinical Summary ---
Author Organization [facility] Address [address] [place] [address] Care Team Providers Care Ophthalmic Asst Name Role Phone Selin, Kati Marie MD Primary Care Provider Malecha Crisgiovanni Shi TAXICAB DISPATCHER Unavailable [phone] Allergies Active Allergy Reactions Criticality Noted Date [...] meals. 180 Capsule 2 08/03/19 25 Active hydrOXYzine HCL 25 mg tabletIndicatio ns:PTSD (post-traumatic stress disorder),Insom charito, unspecified type Take 2-3 tablets by mouth at bedtime for sleep as needed, can take 1 tablet by mouth once daily as needed for anxiey 75 Tablet 1 10/28/19 25 Active Shower ChairIndication s:Weakness For home use- ongoing for 52 weeks 1 Each 11/04/19 25 Active busPIRone 15 mg tabletIndicatio ns:PTSD (post-traumatic stress disorder),Borde rline personality disorder (HC),Severe episode of recurrent major depressive disorder, without psychotic features (HC) Take 1 Tablet (15 mg) by mouth two times daily. 60 Tablet 5 11/23/19 25 Active prazosin 1 mg capsuleIndicati ons:PTSD (post-traumatic stress disorder),Night sheikh associated with chronic post-traumatic stress disorder Take 2 Capsules (2 mg) by mouth at bedtime. 60 Capsule 5 11/23/19 25 Active buPROPion 300 mg Extended-Releas e tabletIndicatio ns:PTSD (post-traumatic stress disorder),Borde rline personality disorder (HC),Severe episode of recurrent major depressive disorder, without psychotic features (HC) Take 1 Tablet (300 mg) by mouth once daily in the morning. 90 Tablet 5 11/23/19 25 Active DULoxetine 60 mg Delayed-release capsuleIndicati ons:PTSD (post-traumatic stress disorder),Sever e episode of recurrent major depressive disorder, without psychotic features (HC) Take 1 Capsule (60 mg) by mouth once daily. 30 Capsule 2 12/23/19 25 Active tirzepatide (weight loss) (Zepbound) 5 mg/0.5 mL penIndications: SHARON (obstructive sleep apnea),Class 3 severe obesity with body mass index (BMI) of 40.0 to 44.9 in adult (HC) Inject 5 mg subcutaneous once weekly for 28 days. 2 mL 02/10/20 25 025 Active Additional Information Patient not taking.Reported on 02/09/2025 tirzepatide (weight loss) (Zepbound) 7.5 mg/0.5 mL penIndications: SHARON (obstructive sleep apnea),Class 3 severe obesity with body mass index (BMI) of 40.0 to 44.9 in adult (HC) Inject 7.5 mg subcutaneous once weekly for 28 days. 2 mL 03/09/20 25 025 Active Additional Information Patient not taking.Reported on 02/09/2025 tirzepatide (weight loss) (Zepbound) 10 mg/0.5 mL penIndications: SHARON (obstructive sleep apnea),Class 3 severe obesity with body mass index (BMI) of 40.0 to 44.9 in adult (HC) Inject 10 mg subcutaneous once weekly for 28 days. 2 mL 04/06/20 25 025 Active Additional Information Patient not taking.Reported on 02/09/2025 tirzepatide (weight loss) (Zepbound) 12.5 mg/0.5 mL penIndications: SHARON (obstructive sleep apnea),Class 3 severe obesity with body mass index (BMI) of 40.0 to 44.9 in adult (HC) Inject 12.5 mg subcutaneous once weekly for 28 days. 2 mL 05/04/20 25 025 Active Additional Information Patient not taking.Reported on 02/09/2025 tirzepatide (weight loss) (Zepbound) 15 mg/0.5 mL penIndications: SHARON (obstructive sleep apnea),Class 3 severe obesity with body mass index (BMI) of 40.0 to 44.9 in adult (HC) Inject 15 mg subcutaneous once weekly. 6 mL 3 06/01/20 Active Additional Information Patient not taking.Reported on 02/09/2025 tirzepatide (weight loss) (Zepbound) 2.5 mg/0.5 mL penIndications: SHARON (obstructive sleep apnea),Class 3 severe obesity with body mass index (BMI) of 40.0 to 44.9 in adult (HC) Inject 2.5 mg subcutaneous once weekly for 28 days. 2 mL 01/13/20 25 025 Additional Information Patient not taking.Reported on 02/09/2025 metroNIDAZOLE 0.75% vaginal 0.75 % (37.5mg/5 gram) vaginal gelIndications: BV (bacterial vaginosis) Insert 1 Applicatorful into the vagina at bedtime for 5 days. 70 g 01/14/20 25 025 Active Problems Problem Noted Date Diagnosed Date [...] Encounters Date Type Department Care Team Description 02/09/2025 2:30 PM CDT Office Visit [facility] [address] [place] [address] Earl Sifuentes MD Sleep Follow-up 02/08/2025 Travel 01/25/2025 Orders Only [facility] Scanner 1 scan: (1-Ord) [place], CERVICAL SPINE WO CONTRAST, 01/25/2025 01/25/2025 Orders Only [facility] Scanner 1 scan: (1-Ord) [facility], RT KNEE 2V, 01/25/2025 01/13/2025 Orders Only [facility] [address] [place] [address] Shasha Robbins, <No scans attached> 01/13/2025 Telephone [facility] [address] [place] [address] Kati Smallwood MD Prior Authorization (tirzepatide (weight loss) (Zepbound) 2.5 mg/0.5 mL pen - DENIED/EXCLUDED) 01/12/2025 1:35 PM CDT Office Visit [facility] [address] [place] [address] Kati Smallwood MD Vaginal Discharge (Started about a week ago. Pain, itching and burning with urination.); Vaginal Pain 01/11/2025 Travel 12/22/2024 2:00 PM CDT Telemedicine [facility] [address] [place] [address] Cris Robison NP Telehealth; Medication Management 12/22/2024 Travel 12/20/2024 Orders Only [facility] Scanner 1 scan: (1-Ord) [facility], RIBS LT MIN 3V W CXR1V, 12/20/2024 12/13/2024 Medical Messaging [facility] [address] [place] [address] Kati Smallwood MD Referral 11/28/2024 Telephone [facility] [address] [place] [address] Ezequiel, Pattie S Referral 11/25/2024 Telephone [facility] [address] [place] [address] Ezequiel, Pattie S Referral 11/24/2024 Telephone [facility] [address] [place] [address] Zheng Hess, [facility] Referral 11/23/2024 Telephone [facility] [address] [place] [address] Zheng Hess, [facility] Referral 11/22/2024 7:00 AM CDT Telemedicine [facility] [address] [place] [address] Cris Robison NP Telehealth; Medication Management (Things are going okay) 11/18/2024 Travel from Last 3 Months Immunizations Immunization [...] History Relation Name Comments Cancer-ovarian Maternal Grandmother metarocio tatic Cancer-colon Maternal Uncle Anesthesia Problem No [...] Answer Date Recorded PHQ-2 TOTAL SCORE 6 12/22/2024 Social Connections Answer Date Recorded Do you [...] PM CDT Legal Sex Female 8:15 AM TUB RIDER Gender Identity Female 03/06/2020 4:05 AM CDT Sexual Orientation Straight 05/28/2023 9: 19 AM TUB RIDER Obstetrics History Para Term AB IAB SAB Ectopic Multiple Livin g Live Births 0 Last Filed Vital Signs Vital Sign Reading Time Taken Comments Blood Pressure 136/100 02/09/2025 2:12 PM CDT Pulse 121 02/09/2025 2:12 PM CDT Temperature 36.5 C (97.7 F) 06/20/2024 10:30 AM TUB RIDER Respiratory Rate 16 05/20/2024 5:26 PM CDT Oxygen Saturation 97% 02/09/2025 2:12 PM CDT Inhaled Oxygen Concentration - - Weight 136.1 kg (300 lb) 02/09/2025 2:12 PM CDT Height 167.6 cm (5' 6) 02/09/2025 2:12 PM CDT Body Mass Index 48.42 02/09/2025 2:12 PM CDT Plan of Treatment Upcoming Encounters Date Type Department Care Team (Late st Contact Info) Description 03/13/2025 2:00 PM CDT Nurse/Clinic Staff Only [place] [address] [place] [address] 03/14/2025 7:30 AM CDT Nurse/Clinic Staff Only [facility] [address] [place] [address] 06/19/2025 11:00 AM TUB RIDER Office Visit [facility] [address] [place] [address] Earl Sifuentes MD [address] [place] [address] Health Maintenance Due Date Last Done Comments Hepatitis B series for 19+ (1 of 3 - 19+ 3-dose series) 2003 COVID-19 vaccine series ( season) 2024 05/16/2021, 09/12/2020, 08/15/2020 Depression screening for age 12+ 12/22/2025 12/22/2024, 11/25/2024, 11/24/2024, Additional history exists BMI (ht and wt on same day) for age 18+ 02/09/2026 02/09/2025, 04/25/2024, 03/09/2024, Additional history exists Pap test for age 21-65 04/01/2028 3 (Verified in Care Everywhere or Patient Record), 02/19/2018, 02/19/2018, Additional history exists Tetanus booster 12/11/2030 12/11/2020, 06/20, 06/20/2020, Additional history exists HIV for age 15-65 Completed 04/12/2024 Hepatitis C screening for age 18-79 Completed 04/12/2024 Pneumococcal series for age 6-49 Aged Out No longer eligible based on patient's age to complete this topic Procedures Procedure Name Priority Date/Time Associated Diagnosis Comments SCAN-MRI INTERPRETATION 01/26/20 12:00 AM CDT SCAN-RADIOLOGY REPORT 01/25/2025 12:00 AM CDT TRICHOMONAS, TI, AND BACTERIAL VAGINOSIS BY ROXANA Routine 01/12/2025 2:31 PM CDT Vaginal infection URINALYSIS MICROSCOPIC Routine 1:00 PM CDT Pain with urination URINE CULTURE Routine 01/12/2025 1:00 PM CDT Pain with urination URINALYSIS MACROSCOPIC - [facility] ONLY POC DIP ([facility]) Routine 01/12/2025 1:00 PM CDT Pain with urination SCAN-RADIOLOGY REPORT 12/20/2024 12:00 AM CDT HIV 1/2 ANTIGEN/ANTIBODY FOURTH GENERATION W/RFL ([facility]) Routine 04/12/2024 10:21 AM CDT ANTI HCV Routine 04/12/2024 10:21 AM CDT Need for hepatitis C screening test RIGGING MAN THIN PREP PAP SCREEN IMAGED Routine 02/19/2018 12:00 PM CDT from Last 3 Months or Most Recently Relevant to Health Maintenance Results * SCAN-RADIOLOGY REPORT (01/25/2025 12:00 AM CDT) Only the most recent of2 resultswithin the time period is included. Anatomical Region Laterality Modality Other us Scanner OTHER Final Result * SCAN-MRI INTERPRETATION (01/25/2025 12:00 AM CDT) Anatomical Region Laterality Modality Other us Scanner OTHER Final Result * (ABNORMAL) TRICHOMONAS, TI, AND BACTERIAL VAGINOSIS BY ROXANA (01/12/2025 2:31 PM CDT) TI SPECIES Negative Negative 2:28 PM CDT [facility] TI GLABRATA Negative Negative 01/13/2025 2:28 PM CDT [facility] TRICHOMONAS VVA Negative Negative 2:28 PM CDT [facility] BACTERIAL VAGINOSIS Positive(A) Negative 01/13/2025 2:28 PM CDT [facility] Other VAGINAL SWAB / Unknown Non-Blood / Unknown 01/12/2025 2:31 PM CDT 01/12/2025 2:31 PM CDT us Kati Smallwood MD MICROBIOLOGY Final R esult [facility] [address] [place] [address], * (ABNORMAL) POCT Urinalysis Dipstick Only [[id number]] (01/12/2025 1:00 PM CDT) PH 6.0 5.0 - 8.0 [facility] SPECIFIC GRAVITY > OR = 1.030 1.001 - 1.035 [facility] Comment: Specific [place] values resulted are outside the analytical measurement range of this device. Recommend repeat/additional testing as clinically indicated. GLUCOSE NEGATIVE NEGATIVE [facility] BILIRUBIN NEGATIVE NEGATIVE [facility] KETONES NEGATIVE NEGATIVE [facility] OCCULT BLOOD NEGATIVE NEGATIVE [facility] PROTEIN 1+(A) NEGATIVE [facility] NITRITE NEGATIVE NEGATIVE [facility] LEUKOCYTE ESTERASE NEGATIVE NEGATIVE [facility] Urine URINE SPECIMEN / Unknown 01/12/2025 1:00 PM CDT 01/12/2025 1:46 PM CDT Kati Smallwood MD URINE Final R esult [facility] [address] [place] [address], [facility] [address] [place] [address] * (ABNORMAL) URINALYSIS MICROSCOPIC [87022.1] - routine (01/12/2025 1:00 PM CDT) RBC 0-2 0-2, None Seen /HPF 01/13/2025 2:29 AM CDT [facility] WBC 26-50(A) 0-2, 3-5, None Seen /HPF 01/13/2025 2:29 AM CDT [facility] BACTERIA Many(A) None Seen, Rare, Few Bacteria/ HPF 01/13/2025 2:29 AM CDT [facility] EPITHELIAL CELLS Many(A) None Seen, Few Epi/HPF 01/13/2025 2:29 AM CDT [facility] HYALINE CASTS 3-5 0-2, 3-5 /LPF 01/13/2025 2:29 AM CDT [facility] AMORPHOUS Present(A) (none) 01/13/2025 2:29 AM CDT [facility] Urine URINE SPECIMEN / Unknown Non-Blood / Unknown 01/12/2025 1:00 PM CDT 01/12/2025 1:44 PM CDT Kati Smallwood MD URINE Final R esult [facility] [address] [place] [address], [place] * URINE CULTURE [45608.2] (01/12/2025 1:00 PM CDT) Pathologist [facility] CULTURE >100,000 CFU/mL of multiple organisms, probable contaminants 01/16/2025 10:28 AM CDT [facility] Urine URINE SPECIMEN / Unknown Non-Blood / Unknown 01/12/2025 1:00 PM CDT 01/12/2025 1:44 PM CDT Kati Smallwood MD MICROBIOLOGY Final R esult Performing Organization Address [facility]/ZIP Co de Phone Number [facility] [address] [place] [address], [place] * HIV 1/2 ANTIGEN/ANTIBODY FOURTH GENERATION W/RFL (QUEST) (04/12/2024 10:21 AM CDT) Pathologist [facility] HIV AG/AB, 4TH GEN NON-REACT SCOUT NON-REACT SCOUT [facility] Comment: HIV-1 antigen and HIV-1/HIV-2 antibodies were [...] purpose. For additional information please refer to http://education.hint.TonZof/faq/ZCA923 (This link is being provided for informational/ educational purposes only.) The performance of this assay has not been clinically validated in patients less than 2 years old. 04/12/2024 10:2 1 AM CDT 04/12/2024 10:25 AM CDT Kati Smallwood MD SEND OUTS Final R esult Performing Organization Address City/[facility]/ZIP Co de Phone Number [facility] [address] [place] [address], [facility] [address] [place] [address] * ANTI HCV (04/12/2024 10:21 AM CDT) HEPATITIS C ANTIBODY NON-REACTI VE NON-REACT SCOUT [facility] Comment: HCV antibody was non-reactive. There is no laboratory evidence of HCV infection. In most cases, no further action is required. However, if recent HCV exposure is suspected, a test for HCV RNA (test code 58794) is suggested. For additional information please refer to http://education.Apple Seeds/faq/WCP53f5 (This link is being provided for informational/ educational purposes only.) Blood BLOOD SPECIMEN / Unknown 04/12/2024 10:21 AM CDT 04/12/2024 10:25 AM CDT us Kati Smallwood MD SEND OUTS Final R esult [facility] [address] [place] [address], [facility] [address] [place] [address] * RIGGING MAN THIN PREP PAP SCREEN IMAGED (02/19/2018 12:00 PM CDT) Case Report Gynecologic Cytology Report Case: [id number] Authorizing Provider: Yana Linder Collected: 02/19/2018 Rizwana Somers MD First Screen: Cande Eisenberg Received: 02/22/2018 1611 Specimen: RIGGING MAN ThinPrep Vial Screening, Cervical/Vaginal 03/05/2018 2:19 PM CDT [facility] INTERPRETATION/ RESULT NEGATIVE FOR INTRAEPITHELIAL LESION OR MALIGNANCY (NIL) (none) 03/05/2018 2:19 PM [address] [facility] at 1419 CDT SPECIMEN ADEQUACY Satisfactory for evaluation Endocervical component present 03/05/2018 2:19 PM CDT [facility] HPV REQUEST HPV and PAP 03/05/2018 2:19 PM CDT [facility] Date of LMP 02/16/2018 03/05/2018 2:19 PM CDT [facility] Last Pap Date 03/05/2018 2:19 PM CDT [facility] Comment:UNKNOWN Automated Review Successful 03/05/2018 2:19 PM CDT [facility] Comment:Specimen processed s uccessfully by automated director of recruitment and admissions device, Useful at [employer], [employer] ANCILLARY TESTING RIGGING MAN HPV Ordered, Please see separate report 03/05/2018 2:19 PM CDT [facility] Note The pap test is a [...] lesions. Cytology is screened and interpreted at [facility] - [address], [place] [address] and [facility] - [address]; [place] [address] and [facility] - [address]; [place] [address] and [facility] [address]; [place] [address] 03/05/2018 2:19 PM CDT [facility] Other (Cervical/Vagina l) 02/19/2018 12:00 PM CDT 02/22/2018 4:11 PM CDT us Yana Linder MD PATHOLOGY/CYTOLOGY Final Result [facility] [address] [place] [address], [place] from Last 3 Months or Most Recently Relevant to Health Maintenance Insurance MEDICARE [place] ONLY MEDICARE PART B HB ONLY MEDICARE PART A HB ONLY Advance Directives * Full Code (Latest Code Status on File) Date Activated Date Inactivated Comments 05/20/2024 10:59 AM 05/20/2024 7:53 PM Question Answer Comments Code Status Discussion: Reviewed Preferences * Full Code Date Activated Date Inactivated Comments 04/22/2024 9:43 AM 04/22/2024 3:28 PM Question Answer Comments Code Status Discussion: Reviewed Preferences Care Teams Ophthalmic Asst Relationship Specialty Start Date End Date Kati Smallwood MD [address] [place] [address] PCP - General Family Practice 04/28/17 Cris Robison NP [address] [place] [address] Psychiatry Nurse Practitioner 09/26/20
[2025-02-17 19:20] VITALS: BP 162/108; PULSE 131; RESP 18; TEMP 36.7; O2SAT 96; BMI 49.6
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
[2025-02-17 20:11] LABS: Albumin* 4.3 g/dL (3.3-5.0); Chloride* 105 mmol/L (96-114); Potassium* 3.5 mmol/L (3.6-5.1); Sodium* 138 mmol/L (135-149)
[2025-02-17 20:13] LABS: Blood Urea Nitrogen* 12 mg/dL (5-24); Creatinine* 0.7 mg/dL (0.5-1.5); Est. Creatinine Clearance* 96.13; Estimated Glomerular Filt Rate 112 ml/min
[2025-02-17 20:14] LABS: Alanine Aminotransferase* 31 U/L (4-35); Alkaline Phosphatase* 86 U/L (40-150); Anion Gap 8 mEq/L (7-15); Aspartate Amino Transferase* 27 U/L (12-35); Bilirubin Total* 0.3 mg/dL (0.1-1.5); Calcium* 9.1 mg/dL (8.4-10.6); Carbon Dioxide* 25 mmol/L (20-32); Glucose* 113 mg/dL (60-115); Total Protein* 7.8 g/dL (6.0-8.3)
[2025-02-17 20:15] LABS: Acetaminophen* < 10.0 ug/mL (10.0-30.0); Ethanol* < 0.01 % (0.01-0.03); Salicylate* < 1.0 mg/dL (1.0-10)
[2025-02-17 20:24] LABS: Hematocrit 40.5 % (33.0-51.0); Hemoglobin* 13.3 gm/dL (12.0-16.0); Immature Granulocytes Pct Auto 0.2 %; Mean Corpuscular HGB Conc 33 gm/dL (32-36); Mean Corpuscular Hemoglobin 26 pg (26-34); Mean Corpuscular Volume 80 fL (80-100); RDW Coefficient of Variation % 14.1 % (11.5-15.5); Red Blood Count 5.04 m/uL (4.00-5.20); White Blood Count* 12.10 K/uL (4.50-11.00)
[2025-02-17 20:25] LABS: Ur HCG Qualitative* Negative (Negative)
[2025-02-17 20:33] LABS: Cannabinoid Screen Urine Negative (Negative); Methamphetamines Screen Urine Negative (Negative); Tricyclic Antidepressant Urine Negative (Negative)
[2025-02-17 20:43] LABS: Immature Granulocytes Abs Auto 0.00 K/uL (0.00-0.30); Lymphocytes Absolute Auto 3.10 K/uL (0.90-2.90); Slide Review Reflex No
[2025-02-17 20:56] LABS: TSH With Reflex to FT4* 1.420 uIU/mL (0.270-4.200)
--- OUTSIDE RECORDS SUMMARY | 2025-02-17 21:19 | XMS_ITS | CCD ---
Author Organization Unknown Care Team Providers Care Sterile Instrument Technician Name Role Phone Machine [place], [place] Primary Care Provider Unava ilable Unavailable Chronic Care Management Unavaila ble Summary Purpose [employer] Insurance Providers Payer name Policy type / Coverage type Covered constitution party ID Effective Begin Date Effective End Date [employer] Commercial Insurance [id number] Unkn own Medicaid [place] Commercial [place] [id number] Unk nown Family History Family History data not found Medication Administered No Medication Administered data Reason For Visit No Reason For Visit data
--- OUTSIDE RECORDS SUMMARY | 2025-02-17 21:19 | XMS_ITS | CCD ---
Author Organization Unknown Care Team Providers Care Entry Level Sales Consultant Name Role Phone [employer] Lift Comp[employer], [place] Primary Care Provider Unava ilable Unavailable Chronic Care Management Unavaila ble Summary Purpose [employer] Insurance Providers Payer name Policy type / Coverage type Covered republican ID Effective Begin Date Effective End Date U[employer] Commercial Insurance [id number] Unkn own Medicaid [place] Commercial Insurance [id number] Unk nown Family History Family History data not found Medication Administered No Medication Administered data Reason For Visit No Reason For Visit data
[2025-02-17 21:22] LABS: Appearance Urine Clear (Clear)
[2025-02-18 00:48] VITALS: BP 158/106; PULSE 96; RESP 16; O2SAT 98
[2025-02-18 02:00] VITALS: BP 148/92; PULSE 87; RESP 16; TEMP 36.7; O2SAT 98
[2025-02-18 02:17] VITALS: BP 148/92; PULSE 87; RESP 16; TEMP 36.7
== END 2025-02-18 02:17 | disposition other institution (70) ==
PROVIDERS: Emergency Provider Emergency Medicine; PCP Family Medicine
DX: R45.851 Suicidal ideations (principal); F32.A Depression, unspecified; N39.0 Urinary tract infection, site not specified
CPT/HCPCS: 36415; 80053; 80143; 80179; 80306; 81001; 81025; 82077; 84443; 85025; 87086; 99284; 99285; Q3014; A9270

== ENCOUNTER 2025-02-18 02:08 | Outpatient (CLI) | payer MEDICARE, SELFPAY | END 2025-02-18 02:09 | disposition home or self-care (01) | PROVIDERS: PCP Family Medicine; Visit Provider Orthopaedic Surgery | DX: F32.A Depression, unspecified (principal); N39.0 Urinary tract infection, site not specified | CPT/HCPCS: A0425; A0428 ==